=== PATIENT | male | born 1955 | race Caucasian/White ===

== ENCOUNTER 2017-01-06 14:21 | Inpatient (IN) | payer MEDICARE, OTHER ==
[~2017-01-06] VITALS: Ht 182.8 cm; Wt 131.5 kg
--- NOTE | ~2017-01-06 | PR ---
[place], [place] PROGRESS NOTE NAME: PRASANTH STEVENSON UNIT #: [id number] ROOM: 312 DOCTOR: LILY HUERTA MD BIRTHDATE: [birth year] DOS: 01/09/2017 CHIEF COMPLAINT: "I slept better. Thanks Dr. Huerta." SUMMARY OF THE VISIT: The patient was interviewed as he was sitting, eating his breakfast in the dining area. He engaged readily in conversation and did report to me that he did sleep much better. He is still complaining of left hip spasms and states that this pain tends to wear him out as it is persistent and constant throughout the day. Nurses report that he does seem to be trending towards euthymia and is much more approachable and redirectable. MENTAL STATUS: He is alert and oriented with some time gaps. Mood does seem to be strongly trending towards euthymia. Affect is much more appropriate. There are no symptoms of kiera or hypomania. There are no overt auditory or visual hallucinations. No delusions, no paranoia. Short, intermediate, and long-term memory for the most part are intact. PLAN: I will increase the Cymbalta further from 60 to 90 mg at bedtime to further combat depression and anxiety as well as relieving pain. I will order Zostrix high potency cream t.i.d. to his left hip to see if this also impacts positively on pain control. We will engage in individual and armijo milieu activity with the ultimate plan to return to [facility] when psychiatrically stable. LILY HUERTA MD CM:PNTRANS [id number] LILY HUERTA MD 01/09/17 1014 interface
--- NOTE | ~2017-01-06 | DS ---
[place], [place] DISCHARGE SUMMARY NAME[id number] UNIT #: [id number] ROOM: 312 DOCTOR: LILY RILEY MD BIRTHDATE: [birth year] DOS: 01/12/2017 CHIEF COMPLAINT: "I have been higher than a kite; I have bipolar manic depressive disorder. HISTORY OF PRESENT ILLNESS: This is a 61-year-old white male who is well known to me from his stay at [facility] in [place], [place]. The patient was sent here on an involuntary basis by the clinical medical assistant of the facility due to extreme mood lability. He has become both verbally and physically aggressive towards staff and other residents. He became physically combative and actually sought out people in an attempt to attack them. He has not been sleeping well for several weeks and not had any sleep for several days prior to this admission. He has not been attending to his ADLs and has not bathed in weeks. He is admitted now to rule out organic factors, to stabilize on medication, to engage in individual and armijo milieu activity, ultimately with the plan to return back to [facility] when stable. PAST MEDICAL HISTORY: Remarkable for CVA, with residual hemiplegia, gait disturbance, osteoarthritis, benign prostatic hypertrophy, chronic venous stasis dermatitis, GERD, hypertension, obesity and nicotine abuse. SUMMARY OF HOSPITAL COURSE: The patient was admitted to the unit where he was due for his Invega Sustenna injection of 117 mg monthly. However, he seemed to be experiencing breakthrough symptoms prior to receiving the injection, so instead of receiving 117 mg monthly, I increased the dose to 156 mg monthly. He tolerated this well. Additionally, I discontinued his Pristiq due to ineffectiveness and started him on Cymbalta 30 mg at bedtime, then 60 mg at bedtime, then 30 mg in the morning and 60 mg at nighttime in order to combat depression as well as giving him some pain relief. He complained of significant bilateral hip pain as well as some back pain. With the Cymbalta, this did seem to improve it considerably. Rozerem was added at 8 mg at bedtime to further aid sleep. With the combination of the Rozerem, Risperdal 1 mg b.i.d. and the Cymbalta, the patient's sleep normalized. He was actually sleeping through the night for 6-8 hours uninterrupted, did seem to break the manic cycle and broke the psychosis as well. He became much more compliant, much more engaging and much more pleasant. There was no agitation or aggression. There were no threats made. There was no physical aggression towards others. He tolerated that medication combination well without any noticeable side effects. Given the extreme and rapid improvement, he was discharged back to [facility] where I will follow him upon his return there. MENTAL STATUS AT DISCHARGE: The patient was alert and oriented with mild time gaps. Mood was strongly trending towards euthymia. Affect was much more appropriate. He was bright, pleasant and gregarious. He was spontaneous. There was no hypomania or kiera. There were no acute psychotic symptoms. For the most part memory was intact. FINAL DIAGNOSES UPON DISCHARGE: Bipolar type 1, mixed. DISPOSITION: All of his prescriptions have been e scribed to his institutional [place], [place] DISCHARGE SUMMARY NAME: PRASANTH STEVENSON UNIT #: [id number] ROOM: 312 DOCTOR: LILY RILEY MD BIRTHDATE: [birth year] pharmacy. I will follow him once he returns to [facility]. LILY RILEY MD CM:BRAYDON [phone] LILY RILEY MD 01/13/17 0800 interface
--- NOTE | ~2017-01-06 | PR ---
[place], [place] PROGRESS NOTE NAME: PRASANTH STEVENSON UNIT #: [id number] ROOM: 312 DOCTOR: LILY RILEY MD BIRTHDATE: [birth year] DOS: 01/10/2017 CHIEF COMPLAINT: "I slept better, is it time for me to leave, my 72 hours should be up." SUMMARY OF THE VISIT: The patient was interviewed as he finished eating his breakfast. He engaged readily in conversation. He was bright and pleasant. There is no mood lability or agitation. He did mention to me that he thought his 72 hours was up and was hoping he would be able to go back to [place]. When I told him that transportation was probably not going to happen until Friday, he nodded in approval and stated that he likes it here and is willing to continue to work with us. He does seem to be tolerating his current medication regimen well and I see no extrapyramidal symptoms, tardive dyskinesia, somnolence or sedation. MENTAL STATUS: He is alert and oriented with some time gaps. Mood does seem to be strongly trending towards euthymia. Affect is more appropriate. There is no symptom suggestive of kiera or hypomania. There are no overt auditory or visual hallucinations. No delusions, no paranoia. Short term memory has mild gaps, otherwise he is intact. PLAN: I will maintain his current psychotropic regimen, continue to engage in individual and armijo milieu activity with the plan to return to [facility] in [place], [place] when stable. LILY RILEY MD CM:PNTRANS LILY RILEY MD 01/10/17 0846 interface
--- NOTE | ~2017-01-06 | PR ---
[place], [place] PROGRESS NOTE NAME: PRASANTH STEVENSON UNIT #: [id number] ROOM: 312 DOCTOR: LILY RILEY MD BIRTHDATE: [birth year] DOS: 01/11/2017 CHIEF COMPLAINT: "Who put me on this fluid restriction. I will not pee myself anymore, I promise." SUMMARY OF THE VISIT: The patient was interviewed as he had completed his breakfast. He was bright, pleasant and conversant. He offered no complaints other than the fact he was upset about his fluid restriction. He tied it into the fact that he was having accidents earlier; however, I tried to educate him that this was because of some abnormalities in his renal function and he would have to talk to the hospitalist about this. From a psychiatric standpoint, he does seem to be trending significantly towards euthymia and is tolerating the medicines well. He does report that the nighttime medicine especially is helping him sleep soundly throughout the entire night. MENTAL STATUS: He is alert and oriented. Mood does seem to be trending towards euthymia. Affect is more appropriate. There are no symptoms of kiera or hypomania. There are no overt auditory or visual hallucinations. No delusions, no paranoia. Memory for the most part is intact. PLAN: I will check a valproic acid level today at 1500 hours. I will also give him some loose spray to at least give him some oral moistness and see if this helps, engage in individual and armijo milieu activity, returning to [facility] when stable. LILY RILEY MD CM:PNTRANS 8 LILY RILEY MD 01/11/1720 interface
--- NOTE | ~2017-01-06 | WRIGHTHP ---
[place], [place] PATIENT HISTORY AND PHYSICAL EXAM NAME: [facility]EVENSON [id number] #: [id number] ROOM: 312 DOCTOR: LILY RILEY MD BIRTHDATE: [birth year] DOS: 01/07/2017 INITIAL PSYCHIATRIC EVALUATION CHIEF COMPLAINT: "I have been higher than a kite, I have bipolar manic depressive disorder. HISTORY OF PRESENT ILLNESS: This is a 61-year-old white male well known to me from his stay at [facility] in [place], [place]. The patient was sent here on an involuntary basis by the center medical director of the facility due to extreme mood lability. The patient has become both verbally and physically aggressive towards staff and other residents there. He has become physically combative and has actually sought out people to attempt to attack them. He is also not slept well for the last several weeks, not having any sleep for the last several days prior to admission. He is not attending to his ADLs and has not bathed in weeks. He is admitted now to rule out organic factors to attempt to stabilize on medication, to engage in individual and armijo milieu activity, ultimately returning back to [facility] or the least restrictive environment. PAST MEDICAL HISTORY: Remarkable for the CVA, gait disturbance, osteoarthritis, benign prostatic hypertrophy, chronic venous stasis dermatitis, GERD, hypertension, obesity, nicotine abuse. MENTAL STATUS: The patient is alert and oriented to person, place and time. Mood does seem to be rather labile. His speech is rather pressured, but he is interruptible. He does tend to be somewhat circumstantial in his thinking, giving extreme details and at times taking an extremely long time to make his point. He was pleasant, however, upon approach with me and was not agitated or aggressive. I did not see the presence of any paranoia or delusions. There were no acute auditory or visual hallucinations. Memory for the most part was intact. DIAGNOSIS: Bipolar type 1, mixed. PLAN: The patient is due for his Invega Sustenna injection of 117 mg IM today. Given the fact that he is breaking through with increased symptoms prior to the monthly injection, I will increase it to 156 mg IM. The patient reports substantial chronic pain issues and had most recently been on Pristiq as an antidepressant. I will start him on Cymbalta 30 mg at bedtime to combat depression and aid pain control. Screening examination shows him to have a vitamin D level that is barely therapeutic, so I will augment with vitamin D, especially now as we are entering late fall in the beginning of winter. We will engage him in individual and armijo milieu activity with the ultimate plan to return to [facility] or a similar situation when stable. [place], [place] PATIENT HISTORY AND PHYSICAL EXAM NAME: PRASANTH STEVENSON UNIT #: [id number] ROOM: 312 DOCTOR: LILY RILEY MD BIRTHDATE: [birth year] LILY RILEY MD CM:HISPHYS:PATIENT HISTORY AND PHYSICAL EXAMINATION 4 LILY RILEY MD 01/07/17814 interface
--- NOTE | ~2017-01-06 | CON ---
[place], [place] REPORT OF CONSULTATION NAME: PRASANTH STEVENSON UNIT #: [id number] ROOM: 312 DOCTOR: PRASANTH THOMAS DPM BIRTHDATE: [birth year] DOS: 01/07/2017 CHIEF COMPLAINT: The patient presents with chief complaint of a sore on the top of his left foot and elongated and thickened nails of both feet. PAST MEDICAL HISTORY: Remarkable for CVA, gait disturbance, osteoarthritis, benign prostatic hypertrophy, chronic venous stasis dermatitis, GERD, hypertension, obesity, nicotine abuse, bipolar type 1 mixed. PHYSICAL EXAMINATION: LOWER EXTREMITIES: Pedal pulses diminished bilateral; decreased hair growth; nail thickening; pigmentary discoloration; temperature changes; edema; venous insufficiency, bilateral lower extremity with venous stasis dermatitis, anterior aspect, bilateral lower legs, anterior aspect; inter-digital mild maceration with papules; dry scaly skin. There is also a small ulceration, dorsolateral, left foot, approximately 0.6 cm in diameter. No signs of purulent drainage or foul odor. No deep sinus tract. No cellulitis. ASSESSMENT: Onychomycosis; deep venous thrombosis; venous insufficiency, bilateral lower extremity; venous stasis dermatitis, bilateral; resolving tinea pedis, bilateral foot; ulceration, dorsolateral, left foot. PLAN: Evaluation and management. Debrided nails 1 through 5, bilateral foot. Continue Lotrisone ____ also apply Bactroban dressing daily, dorsolateral, left foot ulceration and we will follow the patient's next week if he is still inhouse. Thank you for consultation. PRASANTH THOMAS DPM CM:CONSTR:REPORT OF CONSULTATION 1146 01/07/17 1827 interface
--- NOTE | ~2017-01-06 | PR ---
[place], [place] PROGRESS NOTE NAME: PRASANTH STEVENSON UNIT #: [id number] ROOM: 312 DOCTOR: LILY RILEY MD BIRTHDATE: [birth year] DOS: 01/08/2017 CHIEF COMPLAINT: "I didn't sleep, I am always having trouble sleeping." SUMMARY OF THE VISIT: The patient was interviewed in the dining area. He reported he had a bad night. He woke up at 4:00 and was not able to fall back asleep. This has been a persistent problem both here and at [place]. Staff notes, however, he was very irritable and very volatile yesterday evening, leading into night. He made multiple physical threats to the staff and threatened bodily harm to them. Attempts to calm and redirect were only met with him further escalating. He also mentioned to me this morning that he is bothered by persistent hip pain and that this wears him down and makes him more irritable. MENTAL STATUS: He is alert and oriented with time gaps. Mood does seem to be depressed with anxious overtones and irritability is present. There are no overt auditory or visual hallucinations. No delusions, no paranoia. Memory for the most part is intact. PLAN: I will increase his Cymbalta from 30 to 60 mg at night, hoping that this will combat depression, aid sleep and reduce pain. I will reorder his Invega Sustenna 156 mg for January and every month thereafter and add Rozerem 8 mg at bedtime for sleep, engage in individual and armijo milieu activity with the plan to return back to [facility] when psychiatrically stable. LILY RILEY MD CM:PNTRANS 0940 LILY RILEY MD 01/08/17 0941 interface
[2017-01-06] MEDS ORDERED: AMLODIPINE BESY10 MG PO (14:29)
[2017-01-06] MEDS ORDERED: ASPIRIN81 M1 PO (14:29)
[2017-01-06] MEDS ORDERED: BUMETANIDE1 MG PO (14:30)
[2017-01-06] MEDS ORDERED: DEPAKOTE ER250 MG PO (14:35)
[2017-01-06] MEDS ORDERED: FLOMAX0.4 MG PO (14:44)
[2017-01-06] MEDS ORDERED: HALDOL5 MG/1 ML IJ (14:51)
[2017-01-06] MEDS ORDERED: LISINOPRIL20 MG PO (14:52)
[2017-01-06] MEDS ORDERED: MELATONIN3 MG PO (14:53)
[2017-01-06] MEDS ORDERED: ONE-A-DAY ESSE1 EACH PO (14:54)
[2017-01-06] MEDS ORDERED: PRISTIQ50 MG PO (14:55)
[2017-01-06] MEDS ORDERED: MYRBETRIQ25 M1 PO (14:55)
[2017-01-06] MEDS ORDERED: RISPERIDONE1 M1 PO (14:58)
[2017-01-06] MEDS ORDERED: COREG12.5 M1 PO (14:59)
[2017-01-06] MEDS ORDERED: CLONIDINE0.2 MG PO (15:00)
[2017-01-06] MEDS ORDERED: TYLENOL325 M2 PO (15:01)
[2017-01-06] MEDS ORDERED: KEFLEX500 M1 PO (15:02)
[2017-01-06] MEDS ORDERED: VISTARIL50 MG PO (15:18)
--- NOTE | 2017-01-06 17:54 | NUR ---
PRASANTH STEVENSON a 61 year old M admitted via wheel chair from the ADMITTING as a emergency 72 hr. hold admission. Arrived on unit at . ALLERGIES: . Vital signs are: -- . The client signed the following forms with stated understanding: Authorization For The Release of Medical Information, Clothing List, Consent to Voluntary Admission and Hospitalization, Consent and Release Forms/Receipt of Rights, Acknowledgement of Advance Directive Information, Behavioral Health Consent Form, and Informed Consent of Medications. [facility] A search was conducted and hazardous articles were removed. Client was oriented to the unit. SONAL ALLISON\
--- NOTE | 2017-01-06 18:01 | NUR ---
AWARE OF NEW CONSULT AT THIS TIME.
[2017-01-06 18:03] VITALS: BP 146/83
[2017-01-06 18:29] VITALS: BP 146/83
[2017-01-06 19:54] VITALS: BP 157/86
[2017-01-06 20:20] LABS: BASO % 0.1 % (0.0-1.0); EOS # 0.4 10*3/uL (0.0-0.4); EOS % 5.2 % (1.0-4.0); HEMATOCRIT 42.2 % (42.0-52.0); HEMOGLOBIN 14.1 g/dl (14.0-18.0); LYMPH # 1.8 10*3/uL (1.3-4.4); LYMPH % 23.4 % (27.0-41.0); MEAN CELL VOLUME 97.7 fl (80.0-94.0); MEAN CORPUSCULAR HGB 32.6 pg (27.0-31.0); MEAN CORPUSCULAR HGB CONC 33.4 g/dl (33.0-37.0); MONO # 0.8 10*3/uL (0.1-1.0); MONO % 10.4 % (3.0-9.0); NEUT # 4.6 10*3/uL (2.3-7.9); NEUT % 60.4 % (47.0-73.0); PLATELET COUNT AUTOMATED 218 10*3/uL (130-400); RED BLOOD COUNT 4.32 10*6/uL (4.50-5.90); RED CELL DISTRI WIDTH 13.5 % (0-14.5); WHITE BLOOD COUNT 7.6 10*3/uL (4.8-10.8)
[2017-01-06 20:35] LABS: ALBUMIN 3.4 gm/dl (3.1-4.5); ALKALINE PHOSPHATASE 54 U/L (45-117); BUN 27 mg/dl (7-24); CHLORIDE 91 mmol/L (98-107); CREATININE 1.18 mg/dL (0.70-1.30); SGOT/AST 13 IU/L (3-35); SGPT/ALT 20 U/L (12-78); SODIUM 131 mmol/L (136-145); TOTAL PROTEIN 8.1 gm/dL (6.4-8.2)
[2017-01-06 20:59] LABS: VITAMIN D, 25-HYDROXY 30.7 ng/mL (30-100)
--- NOTE | 2017-01-06 22:31 | NUR ---
HEAD TO TOE SKIN ASSESSMENT COMPLETED DURING SHOWER. PATIENT FOUND TO HAVE COPIOUS AMOUNTS OF DANDRUFF AND DRIED SKIN TO ENTIRE SCALP, MAYER AND FACE. PT ENTIRE ALTHEA AREA NOTED TO HAVE LARGE AMOUNTS OF DRIED FECES. INCONTINENT OF BOWEL AND BLADDER. PT REPORTING [facility] STAY AT [facility] IS DUE TO LACK OF SELF CARE AND ABILITY TO BATHE PROPERLY AT HOME WITH ASSISTANCE OF HOME HEALTH. AREA OF CELLULITIS NOTED TO BLE. RIGHT LEG MEASURING 18X 19X 0.0 LIGHT AMOUNT OF SANGUINEOUS DRAINAGE, REDDENED AND WARMTH NOTED. LEFT LEG MEASURING 19X13X 0.01 REDDENED, WARM TO TOUCH AND LIGHT AMOUNT OF SANGUINEOUS DRAINAGE NOTED. OPEN AREA TO LEFT FOOT MEASURING 0.6X0.5 0.01 LIGHT SANGUINEOUS. ACUTE ON CHRONIC PRESSURE AREA NOTED TO LEFT GLUTEL FOLD WITH THIN PINK FRYABLE SKIN MEASURING 0.6X0.5X 0.01 PINK SCAR TISSUE NOTED TO ALTHEA WOUND AREA. ENTIRE RECTAL AREA EXCORIATED WITH MULTIPLE PIN POINT OPEN AREAS NOTED MEASURING 6X8.5X0.1 DRAINING SANGUINEOUS FLUID NOTED. ALL WOUNDS DOCUMENTED IN PROCESS INTERVENTION, PHOTOGRAPHS TAKEN, CALL PLACED TO NURSING LEAD AUDITOR FOR STAGING OF GLUTEAL WOUND, CALL PLACED TO DR. JERZY MCKEON REQUESTING DRESSING ORDERS. TOE NAILS TO BILATERAL FEET NOTED TO BE LONG, YELLOW AND THICK. ORDERS OBTAINED FOR CONSULT TO PODIATRY. NO OPEN AREAS BUT LARGE AREAS NOTED TO BILATERAL FOOT PADS OF DRY FLAKING SKIN. CONSULT FOR NUTRITION AND WOUNDS PLACED IN PROCESS INTERVENTIONS.
[2017-01-07] MEDS ORDERED: LOTRISONE 0.05%45 GM T (01:13)
[2017-01-07] MEDS ORDERED: DERMASEPTIN OI113 GM T (01:14)
--- NOTE | 2017-01-07 01:47 | NUR ---
[facility] NOTIFIED OF CONSULT FOR EVALUATION OF TOE NAILS AND FOOT WOUND FOR DR. THOMAS. CALLED [phone]
[2017-01-07 04:13] LABS: BILIRUBIN NEGATIVE (NEGATIVE); BLOOD NEGATIVE (NEGATIVE); CLARITY CLEAR (CLEAR); COLOR YELLOW (YELLOW); GLUCOSE NEGATIVE (NEGATIVE); KETONE NEGATIVE (NEGATIVE); LEUKO ESTERASE NEGATIVE (NEGATIVE); NITRITE NEGATIVE (NEGATIVE); UROBILINOGEN 0.2 E.U./dl (0.2-1.0)
[2017-01-07 04:21] LABS: URINE AMPHETAMINES < 1000 (1000ng/ml); URINE BARBITURATES < 200 (200ng/ml); URINE BENZODIAZEPINES < 200 (200ng/ml); URINE CANNABINOIDS (THC) < 50 (50ng/ml); URINE COCAINE < 300 (300ng/ml); URINE METHADONE < 300 (300ng/ml); URINE OPIATES < 300 (300ng/ml)
[2017-01-07 04:28] LABS: URINE PHENCYCLIDINE < 25 (25ng/ml)
[2017-01-07 04:29] LABS: WBC 0-2 wbc/hpf (0-5)
--- NOTE | 2017-01-07 06:49 | NUR ---
PTT COOPERATIVE WITH HS CARE, WOUND ASSESSMENT AND MEDICATION ADMINISTRATION. INCONTINENT OF URINE X2, ABLE TO ALERT STAFF THROUGHOUT THE NIGHT FOR URGE TO URINATE X4 AND ABLE TO USE URINAL WITH ASSISTANCE. PT AWOKE PULLED CALL CALL LIGHT AND RETURNED TO SLEEP BEFORE NURSING STAFF COULD RESPOND. WHEN AWOKEN PT STATED I'M ANXIOUS I NEED A VISTARIL AND FELL BACK ASLEEP MID SENTENCE WITH NURSING STAFF. PT BECAME AGITATED WITH STAFF WHILE PROVIDING AM CARE, PT ATTEMPTING TO STAND WITH LEGS WRAPPED IN BLANKETS, USING PROFANE LANGUAGE WITH STAFF. PT REDIRECTED AND EDUCATED THAT HE WOULD BE UNABLE TO STAND WITH OUT FALLING AND THAT WE ONLY CARE ABOUT HIS SAFETY. PT MORE AGREABLE BUT CONTINUES TO BE FIXATED ON ROUTINE OF LONG-TERM STAFF AND STATING, "I'M BEING SENT TO A PSYCH [facility] BECAUSE THOSE MOTHER FUCKERS WOULDNT LET ME DO WHAT I WANT TO". PT INFORMED OF HIS RIGHTS AND GIVEN CHOICES, EDUCATED ON MEAL TIMES AND REMINDED OF UNIT RULES. PT MORE AGREABLE WITH AM CARE CONVERSING WITH THIS NURSE FREELY. TANGENTIAL AND PRESSURED SPEECH AT TIMES THAT IS GARBLED DUE TO PAST CVA. PT SLEPT 6 HOURS WITH FEW INTURRUPTIONS. UP TO CHAIR IN DINING ROOM AWAITING BREAKFAST.
[2017-01-07 07:39] LABS: CHOLESTEROL 186 mg/dL (<200); HDL CHOLESTEROL 34 mg/dl (40-60); LDL CHOLESTEROL 114 mg/dL (9-159); TRIGLYCERIDES 190 mg/dl (<150); VLDL CHOLESTEROL 38 mg/dL (6-40)
[2017-01-07 08:14] VITALS: BP 136/71
--- NOTE | 2017-01-07 10:56 | NUR ---
Goals, relaxation and leisure group Patient present and actively participated in group. Patient able to state appropriate daily goal. Patient requested painting due to it being something they enjoyed and a way to relax and decrease stress. Patient engaged in appropriate converstation with staff and peers in group.
--- NOTE | 2017-01-07 11:11 | NUR ---
PHYSICAL THERAPY PAtient evaluated on 3, full evaluation to follow. Continue with PT as per per plan of care with fall, left LE spasms, min to mod (A) and unit three precautions. Return to LTC as prior with PT prn to return to PLOF. PAtient is high compleixty via chart review, tests and evaluation: 20145. Thank you for this referral. Dionne Thapa,PT
--- NOTE | 2017-01-07 11:14 | NUR ---
Occupational Therapy evaluation completed this date on 3 with full eval to follow. PRecautions include fall risk, personal alarm, w/c use >ww use w/ assist, limited both shoulder use, right facial droop, dysarthria, moderate complexity, left hemiparesis. Recommend OT per POC and return to LTC at [facility]. Thank you for this referral. Tri Dotson OTR/L
--- NOTE | 2017-01-07 11:31 | NUR ---
DR. STANLEY AND DR. LOVE ON UNIT TO SEE PT AT THIS TIME. MADE AWARE PT REQUESTING PNEUMONIA VACCINE. DR. THOMAS ALSO HERE TO SEE PT AT THIS TIME. STATES WILL ORDER BACTROBAN FOR OPEN AREA TO LEFT FOOT. STATES OK TO CONTINUE LOTRISONE CREAM TO BLE.
--- NOTE | 2017-01-07 13:40 | NUR ---
PT IS ALERT AND ORIENTED TO PERSON, PLACE, TIME AND SITUATION. MEMORY APPEARS TO BE INTACT. RESPIRATIONS EASY ON ROOM AIR. MOOD IS STABLE, ANGRY/IRRITABLE AT TIMES, AFFECT IS APPROPRIATE. SPEECH IS COHERENT, SLURRED AT TIMES BUT PT IS ABLE TO COMMUNICATE EFFECTIVELY AND MAKE NEEDS KNOWN. PT DENIES SI/HI. PT DENIES HALLUCINATIONS, NO RESPONSE TO INTERNAL STIMULI NOTED. NO PARANOIA/DELUSIONS NOTED. MEDICATION COMPLIANT WITHOUT DIFFICULTY. INVEGA SUSTENNA 156MG IM GIVEN TO LEFT DELTOID ORDERED BY DR. RILEY. PT VERBALIZED UNDERSTANDING OF USE FOR MEDICATION AND ALSO JOKED WITH STAFF, "SO THIS MEDICINE WILL MAKE ME A MELLOW FELLOW, RIGHT?" PT HAS BEEN CALM AND COOPERATIVE, INTERACTIVE WITH STAFF AND PEERS. PT USES WHEELCHAIR FOR MOBILITY AND SAFETY, FALLING STAR PROGRAM MAINTAINED. PT IS ABLE TO TRANSFER WITH MIN/MOD ASSIST OF 1 STAFF. CONTINENT OF BOWEL AND BLADDER THIS SHIFT. FEEDS SELF WITH SET UP ASSIST. DISPLAYS GOOD APPETITE AND ADEQUATE FLUID INTAKE. NO DISTRESS NOTED. Q15 MIN SAFETY CHECKS MAINTAINED, REFER TO [facility] FLOWSHEET FOR SPECIFIC MONITORING.
--- NOTE | 2017-01-07 14:08 | NUR ---
SW completed psychosocial assessment and faxed update info. so that SW at facility can update the "change in condition" form. SW spoke with pt. 1:1 and pt. would like to be able to be in his own apt. again. pt. admits to "trashing" his apt. thru the [facility] [employer] [facility] because he was "manic". pt states "This time at the [facility] [place], I "went off" because I only get $50 allowance a month for cigarettes and beer and I am now broke, I need more cigaraettes and beer". SW asked if he could ask his brother for more money a month to spend and he said "my brother doesn't like me smoking and drinking so much, so no he won't send me extra money". pt. was more irritable at this time when discussing his money restrictions at [facility] and that "I am a grown man, I need more money a month". SW did explore the possibility of AL with pt. but due to him "being total care". he may not qualify but asked the SW to explore AL waiver bed thru [facility]. SW let him know she would explore that option for pt.
--- NOTE | 2017-01-07 15:11 | NUR ---
Stress and Relaxation Patient was in attendence for group as well as participated. Patient wants to dominate group,talking over or interupting other patients or myself during group. Patient was inappropriate during group stating there is a female employee where he lives that "I hate and I would love to get around the throat." This AC attempted to stop patient from continuing on with his story but he continued to talk louder. Explained to patient about his unappropriate statements and if he continued he would be asked to leave group. Patient apologized and there were no more issues during group
--- NOTE | 2017-01-07 15:44 | NUR ---
PRASANTH STEVENSON [id number] Please refer to the physician's history and physical for past medical history, comorbid conditions, and allergies. Diagnosis: BRIEF PSYCHOTIC D/O Ronaldo Score: 17,AT RISK WOUND DESCRIPTIONS: Location of the wound: left lateral foot Type of wound: Thickness: Partial Size: 0.2cm x 0.3cm x 0.1cm Tunneling: none Undermining: none Sinus Tract: none Presence of Exudate: Serous Amount: Light Color: [place] Odor: None Periwound Skin Appearance: Normal Wound edges: approximated Pain (associated with wound): patient denied at time of assessment How does patient state this happened? patient unsure how this happened Surface the patient is resting on: Proform SKIN PREVENTION RECOMMENDATION: 1. Pressure redistribution support surface as appropriate 2. Elevate heels 3. Remove boots/TEDS every shift and reapply 4. Head of bed 30 degrees as tolerated 5. Assess nutrition and hydration 6. Manage moisture 7. Avoid the use of containment devices while in bed 8. Use absorptive products on surfaces limit layers of linens on bed 9. Turn and reposition every 1-2 hours in bed and every 1 hour in chair as tolerated 10. Weight shifts every 15 minutes while up in chair 11. Offloading with pillows or device to keep heels elevated off bed 12. Monitor skin at least every shift 13. Inspect under medical devices twice a day WOUND TREATMENT RECOMMENDATIONS: Continue with Podiatry dressing orders
--- NOTE | 2017-01-07 16:54 | NUR ---
PNEUMOVAX 23 GIVEN IM TO RIGHT DELTOID THIS DATE. VACCINE INFORMATION SHEET PROVIDED TO PT. PT TOLERATED WELL.
[2017-01-07 20:00] VITALS: BP 152/84
--- NOTE | 2017-01-07 21:40 | NUR ---
INTERACTIVE WITH STAFF AFTER TALKING WITH FRIEND ON PHONE. DENIES ANY OF THE ACCUASATIONS MADE BY [facility]. STATES THEY ALL THINK "I'M OFF MY ROCKER" STATES THEY HAVE TRIED TO HAVE HIM COMMITTED TO A PSYCH UNIT FOR AWHILE. STATES HE WILL NOT SIGN ANYTHING THAT WILL KEEP HIM HERE. DISCUSSED REASONS FOR HIM TO STAY LONG DR RILEY FEELS NECESSARY TO GET MEDICATIONS ADJUSTED AND MAYBE LEARN A FEW NEW COPING SKILLS. DENIES NEED FOR COPING SKILLS AND SAYS HE THINKS HE WILL BE READY TO GO BY FRIDAY. ENCOURAGED HIM TO VOICE HIS THOUGHTS TO DR RILEY. PREPARING FOR BED CLIENT GOT EASILY AGGITATED WHEN THINGS DIDN'T GO QUICKLY HE THOUGHT THEY SHOULD BUT WAS EASILY REDIRECTED WITH EXPLAINATIONS TO WHY YELLING WAS NOT ACCEPTABLE. REFUSED ALL PM CARE INCLUDING ORAL CARE. DID ALLOW US TO CHANGE HIS CLOTHING SO THEY COULD BE WASHED. SWEAT SHIRT HAS REMENANTS OF FOOD AND LARGE QUANTITY OF DROOL. FACIAL DROOP NOTED RIGHT SIDE WITH EXCESSIVE SALIVA WHICH CLIENT CLAIMS IS NORMAL. HOB UP 30 DEGREES. WILL MONITOR
--- NOTE | 2017-01-08 00:43 | NUR ---
VOIDED WITHOUT DIFFICULTY. REPOSITIONED AND BACK TO SLEEP
--- NOTE | 2017-01-08 02:00 | NUR ---
24 HR chart check completed.
--- NOTE | 2017-01-08 06:00 | NUR ---
VINICIUS SET ALARM OFF AND AND SAID HE HAD TO VOID. WAS IN MIDDLE OF PROCESS WITH DOCTOR AND TOLD HIM I WOULD BE BACK IN 5 MINUTES. CLIENT STARTED YELLING AT ME CALLING ME A MOTHER F WHOR HE WAS GOING TO PUNCH IN THE FACE. ATTEMPTS TO REDIRECT UNSUCCESSFUL. UPON RETURNING CLIENT HAD BEEN INCONTINENT OF URINE IN BED. HE CONTINUED TO SCREAM VULGARITIES AND PHYSICAL VIOLENCE AT BOTH MYSELF AND MYRA RN. GOT HIM INTO SHOWER CHAIR WHILE HE IS SCREAMING HE DOESN'T NEED A SHOWER THIS EARLY IN THE MORNING. TRIED TO EXPLAIN HE IS COVERED IN URINE AND NEEDED TO BE CLEANED UP TO NO AVAIL. WE FINALLY PUT HIM IN SHOWER AND HE ALLOWED US TO SHOWER HIM BUT CONTINUED WITH THREATS OF LAWSUITS IF HE FALLS OR GETS HURT. REFUSED ORAL CARE. AFTER SHOWER DRIED CLIENT AND DRESSED HIM AND HE THEN SAID TO ME "WE'RE ENOC RIGHT" AND FIST BUMPED ME. I THEN EXPLAINED THE VULGARITY AND THREATS OF VIOLENCE WAS NOT ACCEPTABLE BEHAVIOR AND HE NEEDS TO WORK ON COPING TECHNIQUES. HE THEN REPLIED "YOU CAN'T UNDO WHAT HAS ALREADY BEEN DONE" AGAIN REDIRECTED THAT THAT MAYBE TRUE IT IS STILL UNACCEPTABLE AND HE NEEDS TO LEARN OTHER WAYS TO EXPRESS HIS ANGER.
[2017-01-08 07:50] VITALS: BP 140/75
--- NOTE | 2017-01-08 08:11 | NUR ---
PHYSICAL THERAPY David was seen this AM 1:1 for his therapy session, Pt up in the day room in his wheelchair. Transfer sit/stand and up on wheeled walker MOD LOCK ASSEMBLER X 1, with bilateral UE, hands shaking, standing balance MIN A X 1. Gait 60' X 1, sitting rest then 95' X 1, MOD LOCK ASSEMBLER X 1, with verbal cueing for gait safety, balance and his turns. End with act Ex to bilateral LE marching, and ankle pumps X 15 reps each. Pt having bilateral knee pain and didnot want to do the LAQ's. Pt back up in ther day room. FIONA HUA MANAGER INVENTORY.
[2017-01-08 08:24] LABS: CHLORIDE 93 mmol/L (98-107); POTASSIUM 4.3 mmol/L (3.5-5.1); SODIUM 129 mmol/L (136-145)
[2017-01-08 08:34] LABS: BUN 17 mg/dl (7-24)
--- NOTE | 2017-01-08 09:15 | NUR ---
BEBETO SARABIA CNP OF HOSPITALIST GROUP MADE AWARE OF ABNORMAL LABS AND PT'S DX OF SIADH.
--- NOTE | 2017-01-08 09:19 | NUR ---
LEO discussed with Nurse Fields and Dr. acuña pt's "pink slip" that will Friday. Dr. acuña states "He will sign in, I will discuss with pt. and nurse together". Dr. acuña left before discussing "pink slip" with pt. so this will be passed to Nurse Sears for tomorrow, who will be the Charge Nurse to assure that pt. has discussion and signs in before the "pink slip" expiration on Friday at 11:30am.
--- NOTE | 2017-01-08 10:15 | NUR ---
BEBETO SARABIA CNP OF HOSPITALIST GROUP HERE TO SEE PT. ASSESSED PT. NEW ORDERS RECIEVED FOR 1000ML FLUID RESTRICTION PER 24 HOURS AND CBC/CMP FOR AM.
--- NOTE | 2017-01-08 11:35 | NUR ---
Goals,Exercise and [place] Trivia Patient did attend group with limited participation. Patient joined during the first part of group but then fell asleep. This AC work patient and encouraged him to participate but patient fell back to sleep. During the time patient was awake and participating he showed no signs of aggressive behavior
--- NOTE | 2017-01-08 12:29 | NUR ---
PT IS ALERT AND ORIENTED TO PERSON, PLACE, TIME AND SITUATION. MEMORY APPEARS INTACT. RESPIRATIONS EASY ON ROOM AIR. MOOD IS ANGRY/IRRITABLE AT TIMES. AFFECT IS FLAT. SPEECH IS LOUD, GARBLED AT TIMES BUT PT IS ABLE TO MAKE NEEDS KNOWN WITHOUT DIFFICULTY. PT DENIES SI/HI. PT DENIES HALLUCINATIONS, NO RESPONSE TO INTERNAL STIMULI NOTED. NO PARANOIA/DELUSIONS NOTED. MED COMPLIANT WITHOUT DIFFICULTY. PT CAN BE DEMANDING AT TIMES, HAS BEEN ABLE TO BE REDIRECTED WITH MINIMAL DIFFICULTY TODAY. NO ANGRY OUTBURSTS OF THIS TIME THIS SHIFT. PT USES WHEELCHAIR FOR MOBILITY, SAFETY. FALLING STAR PROGRAM MAINTAINED. CONTINENT OF BOWEL AND BLADDER. FEEDS SELF, GOOD APPETITE NOTED. 1000ML FLUID RESTRICTION INITIATED. STAFF MADE AWARE OF FLUID RESTRICTION. NO DISTRESS NOTED. Q15 MIN MONITORING CONTINUES. REFER TO [facility] FLOWSHEET FOR SPECIFIC MONITORING.
--- NOTE | 2017-01-08 14:49 | NUR ---
Thanksgiving Fun Facts and a movie Patient was in attendence for group as well as participated. Patient showed no signs of aggression during group. Patient was joking appropriatly with myself as well as the other patient.
--- NOTE | 2017-01-08 16:23 | NUR ---
PT CAME TO THIS NURSE, REQUESTED TO TALK ABOUT VOLUNTARY ADMISSION. STATES HE WOULD LIKE TO SIGN HIMSELF IN. VOLUNTARY ADMISSION FORM REVIEWED WITH PT. PT VERBALIZED UNDERSTANDING AND SIGNED IN FOR VOLUNTARY ADMISSION. DR. RILEY AND SW MADE AWARE.
--- NOTE | 2017-01-08 18:59 | NUR ---
SHIFT CHART CHECK COMPLETED.
[2017-01-08 20:04] VITALS: BP 162/87
--- NOTE | 2017-01-08 20:09 | NUR ---
TYLENOL GIVEN FOR C/O ALL OVER ARTHRITIC PAIN. REVIEWED FLUID RESTRICTION CLIENT IS UNDER. CLIENT ARGUMENTATIVE THEN TRIED TO NEGOTIATE FLUID ISSUES. HIS PATTERNS SEEM TO BE ARGUMENTATIVE THEN APOLOGETIC. STATES HE WORKED ON HIS ANGER ISSUES TODAY. WE DISCUSSED NEW COPING TECHNIQUES THAT HE WASN'T PARTICULARILY INTERESTED IN. PROVIDED CD AT HIS REQUEST IN A QUIET ROOM
--- NOTE | 2017-01-08 22:12 | NUR ---
USES WALKER WELL TO AMBULATE. ASSISTED CLIENT TO BATHROOM TO VOID. CHANGED FOR SLEEP. REFUSED ORAL CARE
--- NOTE | 2017-01-08 22:48 | NUR ---
ASSITED TO BED. STATES TYLENOL MODERATLY EFFECTIVE. CONTINUES TO GET DEMANDING WHEN NEEDS NOT MET IMMEDIATLY. DISCUSSED WORKING ON PATIENTS [place] AND HE AGREED
--- NOTE | 2017-01-09 00:31 | NUR ---
24 HR chart check completed.
[2017-01-09 04:22] LABS: BASO % 0.1 % (0.0-1.0); EOS # 0.5 10*3/uL (0.0-0.4); EOS % 5.2 % (1.0-4.0); HEMATOCRIT 36.5 % (42.0-52.0); HEMOGLOBIN 12.3 g/dl (14.0-18.0); LYMPH # 1.6 10*3/uL (1.3-4.4); LYMPH % 18.4 % (27.0-41.0); MEAN CELL VOLUME 97.6 fl (80.0-94.0); MEAN CORPUSCULAR HGB 32.9 pg (27.0-31.0); MEAN CORPUSCULAR HGB CONC 33.7 g/dl (33.0-37.0); MONO # 1.4 10*3/uL (0.1-1.0); MONO % 15.5 % (3.0-9.0); NEUT # 5.3 10*3/uL (2.3-7.9); NEUT % 60.3 % (47.0-73.0); PLATELET COUNT AUTOMATED 167 10*3/uL (130-400); RED BLOOD COUNT 3.74 10*6/uL (4.50-5.90); RED CELL DISTRI WIDTH 13.3 % (0-14.5); WHITE BLOOD COUNT 8.8 10*3/uL (4.8-10.8)
[2017-01-09 04:39] LABS: ALKALINE PHOSPHATASE 42 U/L (45-117); BUN 20 mg/dl (7-24); CHLORIDE 91 mmol/L (98-107); CREATININE 1.05 mg/dL (0.70-1.30); POTASSIUM 4.6 mmol/L (3.5-5.1); SGOT/AST 14 IU/L (3-35); SGPT/ALT 16 U/L (12-78); SODIUM 128 mmol/L (136-145); TOTAL PROTEIN 6.9 gm/dL (6.4-8.2)
--- NOTE | 2017-01-09 05:40 | NUR ---
CONTINENT OF URINE ALL NIGHT. VOIDED TWICE. 325ML IN URINAL THEN ONCE IN TOILET. STRAW IN COLOR. REFUSED AM CARE. STATES ONLY TAKES A SHOWER TWICE A WEEK. REFUSED ORAL CARE. DRESSED AND BROUGHT TO GROUP ROOM
[2017-01-09 08:16] VITALS: BP 126/57
--- NOTE | 2017-01-09 11:09 | NUR ---
Goals,Exercise and Thanksgiving puzzles Patient was in attendence for group with very limited participation. Patient participated for goals but then stated something inappropriate. Patient was asked not to speak that way,patient was somewhat arguementative but complied. Patient then went to sleep in his chair.
--- NOTE | 2017-01-09 11:25 | NUR ---
PATIENT IS ALERT AND ORIENT TO PERSON, PLACE, TIME AND SITUATION. ABLE TO VOICE MUSIC. MOOD IS IRRITABLE AT TIMES. ABLE TO REDIRECT WITH EFFECTIVENESS. THOUGHT PROCESS IS ORGANIZED AND GOAL DIRECTED. DENIES ANY HALLUCINATIONS, DELUSIONS, HI/SI OR PAIN. CALM DEMEANOR. 1 PERSON ASSIST WITH ACTIVITIES OF DAILY LIVING. CONTINENT OF BOWEL AND BLADDER. COOPERATIVE WITH SKIN TREATMENTS. SELF PROPELS IN W/C AND SET FOR MEALS. CONTINUES ON FLUID RESTRICTIONS AND REMINDER FREQUENTLY OF THESE RESTRITIONS. Q 15 MINUTE SAFETY CHECKS MAINTAINED. NO AGGRESSION NOTED, CONTINUE TO MONITOR AND REDIRECT NEEDED.
--- NOTE | 2017-01-09 13:27 | NUR ---
NO FURTHER COMPLAINTS OF PAIN VOICED, UP IN CHAIR, CALM DEMEANOR WATCHING TV. PRN TYLENOL EFFECTIVE.
--- NOTE | 2017-01-09 14:28 | NUR ---
PATIENT COMPLAINED OF GENERALIZED BODY ACHES REQUESTING TYLENOL. PRN TYLENOL 650MG PO GIVEN AT THIS TIME.
[2017-01-09 20:02] VITALS: BP 132/76
--- NOTE | 2017-01-10 06:54 | NUR ---
PT SLEPT THROUGHOUT NIGHT WITH FEW INTURRUPTIONS TO URINATE. PT COOPERATIVE WITH ALL ASPECTS OF CARE, MED COMPLIANT WITH OUT DIFFICULTY, RECEPTIVE TO MED EDUCATION REGARDING NEW MED CYMBALTA. IMPROVED MOOD LABILITY THAN ON PREVIOUS SHIFTS, NO EPISODES OF AGRESSION WITH THIS NURSE. CONTINUE POC, CONTINUE TO ENCOURAGE PARTICIPATION IN GROUP.
[2017-01-10 08:00] VITALS: BP 129/84
--- NOTE | 2017-01-10 09:12 | NUR ---
PATIENT SEEN 1:1 OT THIS DATE. PATIENT SEATED IN W/C IN DAY ROOM THIS DATE. PATIENT IDENTIFIED BY NAME AND DATE OF . PATIENT COMPLETED RUE AROM SHOULDER FLEX/EXT, AND HORIZONTAL ABD/ADD TO APPROX O-90 DEGREES X 10 REPS. COMPLETED LUE AAROM SHOULDER FLEXION/EXT TO APPROX 0-90 DEGREES THIS DATE. PATIENT COMPLETED BUE AROM ELBOW FLEX/EXT, FOREARM SUPINATION/PRONATION, AND HAND FLEX/EXT X 10 REPS. COMPLETED W/C TRICEP PUSH UPS SEATED X 10 REPS SBA. PATIENT SEATED IN DAY ROOM WITH CHAIR ALARM ATTACHED AND NO FURTHER NEEDS. NEMO BRUMFIELD/Mino
--- NOTE | 2017-01-10 09:15 | NUR ---
PHYSICAL THERAPY David seen this 1:1 for his therapy session and improving. Wheeled Pt out into the desir. Transfer sit/stand MOD A X 1, standing balance with wheeled walker MIN A X 1. Followed by gait 100' X 1, then sitting rest a little SOB, followed by 70' X 1, W/W and MIN/MOD A X 1, verbal cueing for gait, walker turn safety, no LOB and back up in his wheelchair. After short rest act Ex to bilateral LE of marching, LAQ's and ankle pumps with no C/O knee pain X 25 reps each. FIONA HUA ACTION INSTALLER.
--- NOTE | 2017-01-10 10:48 | NUR ---
Goals, remanissing and cornhole group Patient present and participated in parts of group. Patient able to state appropriate goal. Patient disccused childhood memories and what made him happy around the holidays. Patient plesant throughout group however fell asleep during remanissing.
--- NOTE | 2017-01-10 18:19 | NUR ---
David is compliant with prescribed medications. He is noted to be interactive and responds appropriately to questions asked by staff. Thoughts are organized. Alert and oriented to all spheres. No inappropriate behavior has been noted and no agitation has been observed throughout the day. Dr. Huerta in to see him with no further orders received. David requires maximal assistance with hygiene measures @ times. Denies experiencing any sensory disturbances and no overt s/s are noted. Energy level low and he has spent his time viewing football games in the dining room. Reports that he is frustrated with the fluid restriction. Milly Martin in to see him and attempted to explain the reason for the fluid restriction, however, he was not receptive. Refer to [facility] flowsheet for specific monitoring.
[2017-01-10 20:00] VITALS: BP 144/88
--- NOTE | 2017-01-11 04:30 | NUR ---
24 HOUR CHART CHECK COMPLETED.
--- NOTE | 2017-01-11 05:24 | NUR ---
PATIENT IS ALERT AND ORIENTED X3 THIS SHIFT WITH NOTED IRRITABILITY AND AGITATION AT TIMES. DURING 1:1 PATIENT STATED "IM FINE IM JUST WAITING ON MY MEDICATIONS, WHEN ARE THEY COMING". DENIES FEELINGS OF DEPRESSION, SI, HI, AND HALLUCINATIONS. NO NOTED RESPONDING TO INTERNAL STIMULI. MEDICATION COMPLIANT WITHOUT DIFFICULTY AFTER REVIEW OF MEDICINES. NO ANGRY OUTBURSTS NOTED SO FAR THIS SHIFT. SLEPT APPROX 7 HOURS THROUGHOUT THE NIGHT WITH X1 BRIEF AWAKENING TO USE THE RESTROOM WITH ASSISTANCE OF STAFF. 1000ML FLUID RESTRICTION CONTINUED AND MAINTAINED. NO PHYSICAL COMPLAINTS VOICED. PATIENT CURRENTLY IN BED WITH EYES CLOSED. RESPIRATIONS EASY AND REGULAR. NO SIGNS OR SYMPTOMS OF DISTRESS NOTED. REFER TO [facility] FLOWSHEET FOR SPECIFIC MONITORING.
[2017-01-11 07:57] VITALS: BP 147/60
--- NOTE | 2017-01-11 10:30 | NUR ---
DR STANLEY ON UNIT TO SEE PATIENT.
--- NOTE | 2017-01-11 11:46 | NUR ---
PATIENT IS ALERT AND ORIENT TO PERSON, PLACE, TIME AND SITUATION; ABLE TO VOICE NEEDS. MOOD IS STABLE. DENIES ANY HALLUCINATIONS, DELSIONS, HI/SI OR PAIN. 1 PERSON ASSIST WITH ACTIVITIES OF DAILYL LIVING. UP IN WHEELCHAIR, ABLE TO SHIFT WEIGHT INDEPENDANTLY. CONTINENT OF BOWEL AND BLADDER. COMPLAINT WITH MEDICATIONS. APPETITE IS GOOD, CONTINUING TO MONITOR FLUID INTAKES PER ORDER. Q 15 MINUTE SAFETY CHECKS. CONTINUE TO MONITOR FOR AGGRESSION AND REDIRECT NEEDED.
--- NOTE | 2017-01-11 14:42 | NUR ---
PATIENT COMPLAINED OF GENERALIZED BODY ACHES WANTING TYLENOL, PRN TYLENOL 650M PO GIVEN AT THIS TIME.
--- NOTE | 2017-01-11 15:41 | NUR ---
PRN TYLENOL EFFECTIVE, NO FURTHER COMPLAINTS NOTED.
--- NOTE | 2017-01-11 16:05 | NUR ---
PATIENT REFUSED LABS X 2 ATTEMPT, 1:[address] GEE NOTIFIED.
--- NOTE | 2017-01-11 16:06 | NUR ---
Shift chart check completed.
[2017-01-11 20:06] VITALS: BP 145/83
--- NOTE | 2017-01-12 03:25 | NUR ---
24 HOUR CHART CHECK COMPLETED.
--- NOTE | 2017-01-12 05:10 | NUR ---
PATIENT IS ALERT AND ORIENTED X4. MEMORY APPEARS INTACT. MOOD IRRITABLE AT TIMES. SPEECH IS LOUD, GARBLED AT TIMES BUT IS ABLE TO MAKE NEEDS KNOWN WITHOUT DIFFICULTY. DURING 1:1 PATIENT WAS PLEASANT UPON APPORACH AND STATED "YOU KNOW I THINK I HAVE GOTTEN ALOT BETTER, DONT YOU THINK SO". DENIES FEELINGS OF DEPRESSION, SI, HI, AND HALLUCINATIONS. NO NOTED RESPONDING TO INTERNAL STIMULI. MEDICATION COMPLIANT WITHOUT DIFFICULTY AFTER REVIEW OF MEDICINES. NO ANGRY OUTBURSTS NOTED SO FAR THIS SHIFT. SLEPT APPROX 7 HOURS THROUGHOUT THE NIGHT WITH X1 BRIEF AWAKENING TO USE THE RESTROOM WITH ASSISTANCE OF STAFF. 1000ML FLUID RESTRICTION CONTINUED AND MAINTAINED. NO PHYSICAL COMPLAINTS VOICED. PATIENT CURRENTLY IN BED WITH EYES CLOSED. RESPIRATIONS EASY AND REGULAR. NO SIGNS OR SYMPTOMS OF DISTRESS NOTED. REFER TO [facility] FLOWSHEET FOR SPECIFIC MONITORING.
[2017-01-12 08:30] VITALS: BP 143/65
--- NOTE | 2017-01-12 19:30 | NUR ---
ASSISTED TO BATHROOM TO VOID AND HAVE SMALL BM. DOES WELL WITH WALKER. STATES HE IS READY TO GO HOME, FEELS HE HAS LEARNED HOW TO CONTROL HIS TEMPER WHILE BEING HERE. ENCOURAGED TO STAY A COUPLE MORE DAYS BUT WANTS TO GO HOME
[2017-01-12 20:00] VITALS: BP 142/88
--- NOTE | 2017-01-12 20:40 | NUR ---
WATCHING TV. OFFERED PM CARE INCLUDING SHOWER BUT HE REFUSED. STATES HE IS GOING BACK TO INTERMEDIATE TOMORROW AND FRIDAY NIGHT IS SHOWER NIGHT. UNABLE TO CHANGE CLIENTS MIND.
--- NOTE | 2017-01-12 22:33 | NUR ---
ASSISTED TO BATHROM AND PREP FOR BED. SMALL MUSHY STOOL. AGAIN REFUSED ORAL CARE AND SHOWER. WALKS FAIR WITH WALKER. PLACED IN BED IN POSITION OF COMFORT
--- NOTE | 2017-01-12 23:58 | NUR ---
up to void small quantity
--- NOTE | 2017-01-13 00:55 | NUR ---
24 HR chart check completed.
--- NOTE | 2017-01-13 01:31 | NUR ---
UP TO VOID. STATES HE CAN'T SLEEP BECAUSE HE IS NERVOUS AND EXCITED ABOUT GOING HOME. REMINDED HIM THAT DR RILEY HASN'T ORDERED HIS DISCHARGE YET AND TO TRY TO GET SOME SLEEP SO HE WILL BE PREPARED EITHER WAY TOMORROW. VERBALIZED UNDERSTANDING
--- NOTE | 2017-01-13 03:12 | NUR ---
UP TO VOID. TYLENOL GIVEN FOR C/O SLIGHT HEADACHE
--- NOTE | 2017-01-13 05:25 | NUR ---
APPEARS TYLENOL EFFECTIVE. EYES CLOSED RESP EASY NON LABORED
--- NOTE | 2017-01-13 06:43 | NUR ---
BECAME AGGITATED AND THREW TOOTHBRUSH INTO SINK. STATES I CAN'T DO IT AND SAT BACK DOWN ON TOILET. UNABLE TO REDIRECT. EMOTIONAL SUPPORT PROVIDED. DRESSED AND PLACED IN WHEELCHAIR FOR THE DAY
--- NOTE | 2017-01-13 06:45 | NUR ---
SLEPT FAIR. UP 4 TIMES TO VOID
[2017-01-13] MEDS ORDERED: INVEGA SUSTENN156 MG IM (07:41)
[2017-01-13] MEDS ORDERED: ROZEREM8 MG PO (07:41)
[2017-01-13] MEDS ORDERED: BIOTENE MOIST44.3 ML PO (07:41)
[2017-01-13] MEDS ORDERED: DIVALPROEX SOD500 M1 PO (07:41)
[2017-01-13] MEDS ORDERED: ZOSTRIX 0.025%,60 GM T (07:41)
[2017-01-13] MEDS ORDERED: DULOXETINE HCL60 MG PO (07:41)
[2017-01-13] MEDS ORDERED: DULOXETINE HCL30 MG PO (07:41)
[2017-01-13] MEDS ORDERED: RISPERIDONE1 MG PO (07:41)
[2017-01-13 07:55] VITALS: BP 123/63
--- NOTE | 2017-01-13 08:27 | NUR ---
NOTIFIED OF PT DIACHRGE SET FOR TODAY AND MEDICAL MEDS NEEDING COMPLETED.
--- NOTE | 2017-01-13 09:20 | NUR ---
REFUSED NICOTINE PATCH- REFUSED DISCHARGE WOUND CARE PHOTOS- STATES JUST WANTS TO GET THE HELL OUT OF HERE SO HE CAN DRINK COFFEE AND SMOKE
--- NOTE | 2017-01-13 09:38 | NUR ---
pt to be d/c'ed today back to [facility] at 1pm via [facility]. pt. states "I have to go back there?" [facility] service coordinator Frannie who informed the [place] staff.
--- NOTE | 2017-01-13 09:44 | NUR ---
PHYSICAL THERAPY Mr Roland seen this AM 1:1 for his therapy session and sleeping sound his first therapy visit. Stopped back 45 min later after David's breakfast and he was ready to gait. Wheeled out into her desir, transfer sit/stand with MODE MOTORIZED SQUAD COMMANDING OFFICER X 1 standing balance with wheeled walker MIN A X 1. Then gait 90' X 1, MOD MOTORIZED SQUAD COMMANDING OFFICER X 1, with W/W and asking to sit to rest at this time, no LOB. Followed by another gait 90' X 1, cueing for gait safety, balance and once up David does well. End with act Ex to bilateral LE of marching, LAQ's, and ankle pumps X 25 reps each with cueing for each Ex. Pt taken back to the day room. FIONA HUA COMPUTER OPERATIONS SPECIALIST.
--- NOTE | 2017-01-13 10:09 | NUR ---
PATIENT SEEN 1:1 OT THIS DATE 15 MINUTES.PATIENT IDENTIFIED BY NAME AND DATE OF [facility]. PATIENT REPORTS FEELING TIRED AND C/O SORE RIGHT SHOULDER. PATIENT COMPLETED ACTIVITY TO TOLERANCE THIS DATE. PATIENT COMPLETED BUE AROM SROM TECHNIQUE INCLUDED ELBOW FLEX/EXT AND HORIZONTAL ABD/ADD X 15 REPS.COMPLETED AROM WRIST FLEX/EXT, HAND FLEX/EXT X 10 REPS. COMPLETED BUE TRICEP W/C PUSHUPS X 15 REPS FOR INCREASE I SIT TO STAND TASK. PATIENT DECLINE TO COMPLETE MORE OT VERBALIZING THAT HE WAS TOO TIRED. NEMO BRUMFIELD/Mino
--- NOTE | 2017-01-13 11:29 | NUR ---
Leisure,goals and exercise Patient in activity room during group this am however patient asleep and unable to wake to participate. Patient just finished with occupational therapy prior to group.
--- NOTE | 2017-01-13 11:57 | NUR ---
NOTIFIED OF PT BEING DISCHARGED AND MED REC NEEDING COMPLETED.
--- NOTE | 2017-01-14 08:00 | NUR ---
PHYSICAL THERAPY CO-SIGN I approve of the Phyical Therapy notes written above. JANEEN GAITAN PT
--- NOTE | 2017-01-14 16:57 | NUR ---
OCCUPATIONAL THERAPY CO-SIGN I approve of the Occupational Therapy notes written above. EJ JOHN OTR/Mino
== END 2017-01-13 13:30 | disposition other institution (70) | DRG 885 ==
LOC: 3N 14:21
PROVIDERS: Internal Medicine; Registered Nurse; ADMIT Psychiatry & Neurology Psychiatry
PROC: 0HBRXZZ Excision of Toe Nail, External Approach (ICD-10-PCS; principal; 2017-01-07)
DX: F31.60 Bipolar disorder, current episode mixed, unspecified (principal); E87.8 Other disorders of electrolyte and fluid balance, not elsewhere classified; I82.403 Acute embolism and thrombosis of unspecified deep veins of lower extremity, bilateral; L03.115 Cellulitis of right lower limb; E87.1 Hypo-osmolality and hyponatremia; F20.0 Paranoid schizophrenia; L03.116 Cellulitis of left lower limb; I69.359 Hemiplegia and hemiparesis following cerebral infarction affecting unspecified side; E66.9 Obesity, unspecified; I10 Essential (primary) hypertension; M19.90 Unspecified osteoarthritis, unspecified site; K21.9 Gastro-esophageal reflux disease without esophagitis; R73.9 Hyperglycemia, unspecified; B35.1 Tinea unguium; R15.9 Full incontinence of feces; N32.89 Other specified disorders of bladder; I87.2 Venous insufficiency (chronic) (peripheral); G89.29 Other chronic pain; L97.519 Non-pressure chronic ulcer of other part of right foot with unspecified severity; L97.529 Non-pressure chronic ulcer of other part of left foot with unspecified severity; B35.3 Tinea pedis; R26.2 Difficulty in walking, not elsewhere classified; N40.1 Benign prostatic hyperplasia with lower urinary tract symptoms; F17.210 Nicotine dependence, cigarettes, uncomplicated; N39.498 Other specified urinary incontinence; Z71.6 Tobacco abuse counseling; Z91.041 Radiographic dye allergy status; Z84.89 Family history of other specified conditions; Z79.899 Other long term (current) drug therapy; Z79.82 Long term (current) use of aspirin; Z68.39 Body mass index [BMI] 39.0-39.9, adult

== ENCOUNTER 2017-01-29 12:57 | Inpatient (IN) | payer MEDICARE, OTHER ==
[~2017-01-29] VITALS: Ht 182.8 cm; Wt 124.7 kg
--- NOTE | ~2017-01-29 | PR ---
[place], [place] PROGRESS NOTE [id number] #[facility] [id number] ROOM: 312 DOCTOR: ADOLPH MONTERO,MY BIRTHDATE: [birth year] DOS: 02/04/2017 ROOM NUMBER: [id number]. CHIEF COMPLAINT: "Good morning." SUMMARY OF THE VISIT: The patient was interviewed in the dining area today after finishing breakfast. The patient voiced no complaints or concerns today. States he slept well last night with just Seroquel 200 mg at bedtime and reports tolerating the medication well. He engaged readily in conversation. Denies any suicidal thoughts, plan or intent. States he just wants to go to do different facility when discharged from here. MENTAL STATUS: The patient is alert and oriented to person, place and time. Mood does seem to be trending towards euthymia. Affect is more appropriate. No somnolence or lethargy noted. There are no symptoms of kiera, hypomania, delusions or paranoia noted. There are no overt auditory or visual hallucinations. Memory for the most part is intact. PLAN: We will continue current treatment plan. We will also renew Ativan p.r.n. in case requires intervention. We will engage the patient in individual and armijo milieu with the ultimate plan is to be discharged to a alf once the patient is psychiatrically stable. MY ADOLPH, DO LILY RILEY MD CM:PNTRANS [phone] MY ADOLPH DO 02/04/17 1150 interface
--- NOTE | ~2017-01-29 | PR ---
[place], [place] PROGRESS NOTE [id number] #: [id number] ROOM: 312 DOCTOR: ADOLPH MONTERO,MY BIRTHDATE: [birth year] DOS: 01/31/2017 CHIEF COMPLAINT: "I have cellulitis in my left small toe." SUMMARY OF THE VISIT: The patient was interviewed in the dining area today. The patient complains that he has cellulitis at left toe that needed to be looked at and treated. According to record, the patient has been getting Keflex for his cellulitis. States he does not want to go back to [facility] and requested to be place at [facility] when he is discharged from here. Said he wants to lose some weight; therefore, wants some diet pills today. MENTAL STATUS: Alert, awake and oriented with time gaps. Mood seems somewhat grandiose and expansive still, but with some improvement. There is no overt evidence of auditory or visual hallucination or agitation noted. PLAN: We will increase Seroquel 200 mg at bedtime to help with grandiosity. Continue to engage patient in individual and group activity. MY ADOLPH, DO LILY RILEY MD CM:PNTRANS [id number] MY ADOLPH DO 02/03/17 0922 interface
--- NOTE | ~2017-01-29 | PR ---
[place], [place] PROGRESS NOTE [id number] #: [id number] ROOM: 312 DOCTOR: LIAT DRAPER,AKHIL BIRTHDATE: [birth year] DOS: CHIEF COMPLAINT: "Why it is cold here?" SUBJECTIVE: The patient is seen this morning in dining area, sitting in his wheelchair. He did engage in conversation, though it is very hard to understand because of some speech issues. He is still very tangential, jumping topics. He has been taking his medicines, slept okay last night, had his breakfast and staff has no other concerns at present. MENTAL STATUS EXAMINATION: The patient is awake, alert, oriented to person, place, approximate to time. Fair eye contact. Speech still tangential, though better than yesterday since he could stay on topic better. Mood still expansive. Affect blunted. No overt psychosis at present. PLAN: The patient is showing some improvement. His Depakote level this morning is 82.5, so we shall continue with the same dose of the medicines and shall try and engage him in armijo milieu. AKHIL JOSUE MD CM:PNKINJAL [phone] AKHIL JOSUE MD 02/02/17 1425 interface
--- NOTE | ~2017-01-29 | PR ---
[place], [place] PROGRESS NOTE [id number] #: [id number] ROOM: 312 DOCTOR: LILY RILEY MD BIRTHDATE: [birth year] DOS: 02/07/2017 CHIEF COMPLAINT: "Morning." SUMMARY OF THE VISIT: The patient was rather somnolent and was dozing in his wheelchair in the dining area. He awoke briefly to say morning, but then dozed back off. He has been increasingly more upset about the delay in his discharge and has been acting out by being verbally inappropriate at times. We are still awaiting the recertification through [facility] to determine if we can successfully discharge him then to [facility]. MENTAL STATUS: He is alert and oriented. Overall, he does seem to have improved and there is no depression, kiera or psychotic symptoms present. There is some somnolence, but he has received some p.r.n. intervention. PLAN: At this point, given the fact that he is receiving Ativan and is actively requesting it, I will be proactive and start him on Vistaril 50 mg q. 6 hours straight. I would prefer to use a nonaddicting agent given his past substance abuse history. I will recheck valproic acid level today at 1500 hours to determine if it is still therapeutic and not too high or too low. Once we are able to discharge because of the recert [facility], we will do so. LILY RILEY MD CM:PNTRANS [id number] LILY RILEY MD 02/08/17 0506 interface
--- NOTE | ~2017-01-29 | DS ---
[place], [place] DISCHARGE SUMMARY NAME: PRASANTH STEVENSON UNIT #: [id number] ROOM: 312 DOCTOR: LILY RILEY MD BIRTHDATE: [birth year] DOS: 02/06/2017 ADDENDUM CHIEF COMPLAINT: "Am I going today. If I am not, I am going to need some more of that Ativan." SUMMARY OF THE VISIT: The patient was interviewed in the dining area where he was sitting comfortably in his wheelchair. He engaged readily in conversation and reported that he was disappointed in the fact that he did not leave here and go to his new facility. He is hopeful that this facility will more adequately meet his needs and is voicing positive plans for the future. MENTAL STATUS: The patient is alert and oriented. He is in a fairly euthymic state. There are no symptoms of hypomania or kiera. There are no voiced suicidal, homicidal or self-injurious thoughts. There are no auditory or visual hallucinations noted. Discharge is as per the note dictated 02/05/2017. DISPOSITION: To [facility] at [facility] and I will follow him upon his discharge there. LILY RILEY MD CM:DISCHARG [phone] LILY RILEY MD 02/06/17 1711 interface
--- NOTE | ~2017-01-29 | WRIGHTHP ---
[place], [place] PATIENT HISTORY AND PHYSICAL EXAM NAME: PRASANTH STEVENSON [facility] #: [id number] UNIT #: [id number] ROOM: 312 DOCTOR: LILY RILEY MD BIRTHDATE: [birth year] DOS: 01/30/2017 INITIAL PSYCHIATRIC EVALUATION CHIEF COMPLAINT: "I am going to hire hit man to kill those bastards." HISTORY OF PRESENT ILLNESS: This is a 61-year-old white male who was sent on an involuntary basis from [facility] in [place], [place]. The patient had previously been here for an exacerbation of his bipolar disorder and once again now is admitted due to severe grandiosity and paranoia. The patient has actively been stating he is going to call a friend he knows in [place], who is a hit man to kill both the childcare center administrator and the outdoor studies director at [facility]. He states he is tired of what they are doing to him and wants them out of the way, so he can continue with his life of fame. He is very grandiose, stating that he knows people like Dharmesh Skaggs and is going to have them visit him here in the hospital. He has not been sleeping well at the snf, further exacerbating his manic tendencies. He is admitted now to rule out organic factors, to attempt to stabilize on medication and to return to the least restrictive environment when psychiatrically stable. PAST MEDICAL HISTORY: Remarkable for gait disturbance, osteoarthritis, bladder spasm, benign prostatic hypertrophy, chronic venous stasis, GERD, CVA with residual hemiparesis, hypertension, obesity and a long history of bipolar disorder. MENTAL STATUS: The patient is alert and oriented with significant time gaps. Mood does seem to be rather expansive and grandiose with some depressive overtones as well. He is very paranoid and upset, especially with the administration at his snf. He openly states he does not want to return there. There are no auditory hallucinations noted; however, memory has gaps for short term events. DIAGNOSIS: Bipolar type 1, mixed. PLAN: He just received his normal Invega Sustenna dose on the day prior to admission. I will maintain the schedule there. I will discontinue his Risperdal in lieu of Seroquel, utilizing it as a secondary antipsychotic to help with the grandiosity; at the same time I will discontinue his oral Risperdal as this is redundant with the Invega. We will engage in individual and armijo milieu activity. We will discuss with [facility] possible placement into an alternative placement, engage in individual and armijo milieu activity, discharging then when stable. [place], [place] PATIENT HISTORY AND PHYSICAL EXAM NAME: PRASANTH STEVENSON UNIT #: [id number] ROOM: 312 DOCTOR: LILY RILEY MD BIRTHDATE: [birth year] LILY RILEY MD CM:HISPHYS:PATIENT HISTORY AND PHYSICAL EXAMINATION [phone] LILY RILEY MD 01/30/17 1125 interface
--- NOTE | ~2017-01-29 | PR ---
[place], [place] PROGRESS NOTE NAME[id number] UNIT #: [id number] ROOM: 312 DOCTOR: LIAT DRAPER,AKHIL BIRTHDATE: [birth year] DOS: CHIEF COMPLAINT: "I want cortisone shot." SUBJECTIVE: The patient is 61 years old admitted with exacerbation of bipolar symptoms. Today seen in his room, lying in bed. He has garbled speech, was hard to make out what he wants to say, though he had been very tangential, jumping topics, could not stay focused. As per nurse's report, he has been taking his medicines. He states that he slept better last night, had his breakfast this morning and he has not been aggressive, rather feeling a little drowsy this morning. MENTAL STATUS EXAMINATION: The patient is alert, oriented with time gaps. Speech is garbled, maybe because of previous stroke. Broken eye contact. He is very tangential, jumping topics. Mood is still very expansive and grandiose. No overt psychosis at present. PLAN: Needs further stabilization, so we shall continue his care and continue his medicines. We shall get his Depakote level tomorrow morning and adjust the dose as needed. We shall try and engage him in armijo milieu as he is more stable. AKHIL JOSUE MD CM:PNTRANS [id number] AKHIL JOSUE MD 02/01/17 1332 interface
--- NOTE | ~2017-01-29 | PR ---
[place], [place] PROGRESS NOTE [id number] UNIT #: [id number] ROOM: 312 DOCTOR: LILY RILEY MD BIRTHDATE: [birth year] DOS: 02/03/2017 CHIEF COMPLAINT: "Do you find a place for me yet." SUMMARY OF THE VISIT: The patient was interviewed as he sat in the dining area, finishing his breakfast. He engaged readily in conversation and was again fixated on leaving [facility] and finding in an alternative placement. He did report to me. He is sleeping well and is eating well. He does seem a little somnolent this morning. MENTAL STATUS: He is alert and oriented to person, place and approximate to time. Mood does seem to be trending towards euthymia. Affect is more appropriate. There are no symptoms of kiera or hypomania. There are no overt auditory or visual hallucinations. No delusions are present. Short, intermediate and long-term memory for the most part are intact. PLAN: I will discontinue the Rozerem. Now that he is on Seroquel 200 mg at bedtime. This should be sedative enough that he should not necessarily need like the Rozerem. I will discontinue and monitor. If he does require, I will restart. LILY RILEY MD CM:PNTRANS [id number] LILY RILEY MD 02/03/17 1218 interface
--- NOTE | ~2017-01-29 | DS ---
[place], [place] DISCHARGE SUMMARY NAME: PRASANTH STEVENSON [facility] #: [id number] UNIT #: [id number] ROOM: 312 DOCTOR: LILY RILEY MD BIRTHDATE: [birth year] DOS: 02/05/2017 CHIEF COMPLAINT: "I am going to hire hit man to kill those bastards." HISTORY OF PRESENT ILLNESS: This is a 61-year-old white male who was sent on an involuntary basis from [facility] in [place], [place]. The patient was recently here due to an exacerbation of his bipolar disorder and is now readmitted due to increased grandiosity and paranoia. The patient has actively been stating that he is going to call a friend. He knows who will be a hit man and kill both the data security administrator and the director project management at [facility]. He also states that he is very famous and he knows people like Dharmesh Skaggs and he is going to have them visit him in the hospital. He had not been sleeping well while at the group home, further exacerbating his manic tendencies. He is admitted now to rule out organic factors and attempt to re-stabilize on medication. PAST MEDICAL HISTORY: Remarkable for gait disturbance, osteoarthritis, bladder spasm, benign prostatic hypertrophy, chronic venous stasis, GERD, CVA with residual hemiparesis, hypertension, obesity and a long history of bipolar disorder. SUMMARY OF HOSPITAL COURSE: The patient was admitted to the unit where he just received his Invega Sustenna, so that order was continued for the next month. Given the fact that he was still having breakthrough bipolar symptoms and sleep disturbance, his oral Risperdal was discontinued in lieu of Seroquel 100 mg at bedtime. This had an immediate impact positively on his sleep, dose was increased then from 100 to 200 and at this dose, his kiera and mood lability and paranoia ceased. He tolerated the Seroquel well. Given the fact that he was so beneficial in helping sleep, his trazodone and Rozerem with both discontinued due to redundancy. With this combination of medications, he gradually improved to the point where he became euthymic and voiced positive plans for the future. He did openly request that he will not return back to [facility], stating that he would like to find a place with much younger residents more his age, so he can have the ability to have conversations and interact more appropriately. manager of creative services were very important in securing a placement at [facility]. MENTAL STATUS AT DISCHARGE: The patient was alert and oriented with time gaps. Mood was strongly trending towards euthymia. Affect was much more appropriate. There were no symptoms of kiera or hypomania. There were no auditory or visual hallucinations, no delusions, no paranoia. Short-term memory had gaps, otherwise he was intact. FINAL DIAGNOSES AT DISCHARGE: Bipolar type 1, mixed with psychotic features. PLAN: All of his prescriptions have been e-scribed and he will be admitted to [facility]. [place], [place] DISCHARGE SUMMARY NAME: [facility]SON [facility] [id number] UNIT #: [id number] ROOM: 312 DOCTOR: LILY RILEY MD BIRTHDATE: [birth year] LILY RILEY MD CM:REALARG [phone] LILY RILEY MD 02/05/17 1137 interface
[~2017-01-29 12:57] MED LIST: AMLODIPINE BESY10 MG PO; ASPIRIN81 M1 PO; BIOTENE MOIST44.3 ML PO; BUMETANIDE1 MG PO; CLONIDINE0.2 MG PO; COREG12.5 M1 PO; DEPAKOTE ER250 MG PO; DERMASEPTIN OI113 GM T; DIVALPROEX SOD500 M1 PO; DULOXETINE HCL30 MG PO; DULOXETINE HCL60 MG PO; FLOMAX0.4 MG PO; HALDOL5 MG/1 ML IJ; INVEGA SUSTENN156 MG IM; KEFLEX500 M1 PO; LISINOPRIL20 MG PO; LOTRISONE 0.05%45 GM T; MELATONIN3 MG PO; MYRBETRIQ25 M1 PO; ONE-A-DAY ESSE1 EACH PO; PRISTIQ50 MG PO; RISPERIDONE1 M1 PO; RISPERIDONE1 MG PO; ROZEREM8 MG PO; TYLENOL325 M2 PO; VISTARIL50 MG PO; ZOSTRIX 0.025%,60 GM T
[2017-01-29] MEDS ORDERED: BUMETANIDE1 MG PO (13:27)
[2017-01-29] MEDS ORDERED: ROZEREM8 MG PO (13:29)
--- NOTE | 2017-01-29 15:38 | NUR ---
DR. HARTMAN NOTIFIED OF NEW ADMISSION, DX LIST AND MEDICATONS UPDATED FOR [facility].
[2017-01-29 15:41] VITALS: BP 164/88
--- NOTE | 2017-01-29 17:35 | NUR ---
PATIENT OFF UNIT FOR XRAY TO LEFT HIP
--- NOTE | 2017-01-29 17:49 | NUR ---
PATIENT RETURED BACK TO UNIT FROM XRAY TO LEFT HIP
--- NOTE | 2017-01-29 18:50 | NUR ---
PRASANTH STEVENSON a 61 year old M admitted via stretcher from the ADMITTING as a emergency 72 hr. hold admission. Arrived on unit at 1533. ALLERGIES: IODINE. Vital signs are: [id number] 164/88. The client signed the following forms with stated understanding: Authorization For The Release of Medical Information, Clothing List, Consent to Voluntary Admission and Hospitalization, Consent and Release Forms/Receipt of Rights, Acknowledgement of Advance Directive Information, Behavioral Health Consent Form, and Informed Consent of Medications. [facility] A search was conducted and hazardous articles were removed. Client was oriented to the unit. LILLIANA ARROYO
[2017-01-29 20:00] VITALS: BP 156/88
--- NOTE | 2017-01-30 01:17 | NUR ---
PT A&O X4. STABLE MOOD. CALM AND INTERACTIVE WITH STAFF AND PEERS. MEDICATION COMPLIANT. DENIES HALLUCINATIONS AND DELUSIONS. NO S/S OF DISTRESS NOTED. NO C/O PAIN. DENIES WANTING ANY HARM DONE TO STAFF AT FACILITY. STATED HE "NEEDED A VACATION". PLAN TO CONTINUE WITH CURRENT TX PLAN. RIGHT SIDED FACIAL DROOP D/T HX OF CVA. UNABLE TO LIFT LEFT ARM UP TO TOUCH RIGHT SHOULDER D/T AN OLD SHOULDER BREAK, PER PT. MEDICATION EDUCATION COMPLETED DURING MED [employer]. SEE [facility] FLOWSHEET FOR SPECIFIC MONITORING.
[2017-01-30 06:09] LABS: ALKALINE PHOSPHATASE 45 U/L (45-117); BASO % 0.2 % (0.0-1.0); BUN 22 mg/dl (7-24); CHLORIDE 95 mmol/L (98-107); CHOLESTEROL 171 mg/dL (<200); CREATININE 1.07 mg/dL (0.70-1.30); EOS # 0.4 10*3/uL (0.0-0.4); EOS % 3.6 % (1.0-4.0); HDL CHOLESTEROL 37 mg/dl (40-60); HEMATOCRIT 38.4 % (42.0-52.0); HEMOGLOBIN 12.6 g/dl (14.0-18.0); LDL CHOLESTEROL 107 mg/dL (9-159); LYMPH # 1.6 10*3/uL (1.3-4.4); LYMPH % 15.6 % (27.0-41.0); MEAN CORPUSCULAR HGB 31.8 pg (27.0-31.0); MEAN CORPUSCULAR HGB CONC 32.8 g/dl (33.0-37.0); MEAN PLATELET VOLUME 10.1 fl (9.6-12.3); MONO # 1.5 10*3/uL (0.1-1.0); MONO % 14.6 % (3.0-9.0); NEUT # 6.7 10*3/uL (2.3-7.9); PLATELET COUNT AUTOMATED 217 10*3/uL (130-400); POTASSIUM 4.3 mmol/L (3.5-5.1); RED BLOOD COUNT 3.96 10*6/uL (4.50-5.90); RED CELL DISTRI WIDTH 14.2 % (0-14.5); SGOT/AST 8 IU/L (3-35); SGPT/ALT 15 U/L (12-78); SODIUM 137 mmol/L (136-145); TOTAL PROTEIN 7.5 gm/dL (6.4-8.2); TRIGLYCERIDES 133 mg/dl (<150); VLDL CHOLESTEROL 27 mg/dL (6-40); WHITE BLOOD COUNT 10.2 10*3/uL (4.8-10.8)
[2017-01-30 07:10] LABS: VITAMIN D, 25-HYDROXY 35.7 ng/mL (30-100)
--- NOTE | 2017-01-30 07:25 | NUR ---
pt slept approximately 8 hours this shift with no interruptions. no s/s of distress noted. no c/o pain. see [facility] flowsheet for specific monitoring.
[2017-01-30 08:55] VITALS: BP 142/75
--- NOTE | 2017-01-30 09:07 | NUR ---
MEDICATION COMPLIANT WITHOUT DIFFICULTY THIS MORNING. SITTING IN W/C IN DINING ROOM AT THIS TIME. ATE A BANANA AND DRANK 1 OJ FOR BREAKFAST. STATES HE SLEPT WELL LAST NIGHT AND IS TIRED THIS MORNING, FALLING ASLEEP AT THE TABLE. RESPIRATIONS EASY AND EVEN. NO DISTRESS NOTED.
--- NOTE | 2017-01-30 09:25 | NUR ---
PATIENT OFF UNIT IN CARE OF TRANSPORTER FOR VENOUS DOPPLER.
--- NOTE | 2017-01-30 09:41 | NUR ---
PT BACK TO UNIT AT THIS TIME.
--- NOTE | 2017-01-30 10:12 | NUR ---
SPEECH PATHOLOGY Screening completed. Speech pathology services are not recommended at this time. There are no reports of dysphagia and no reports of acute communication difficulty. TOVA DOUGLAS MSCCC-FRONT ATTENDANT
--- NOTE | 2017-01-30 10:49 | NUR ---
Goals,exercise & [place] [employer] Patient was in attendence for group but would not participate. Patiant stated "No I want to sleep." and went back to sleep in his chair
--- NOTE | 2017-01-30 11:31 | NUR ---
Patient approached for Occupational Therapy evaluation on the [facility] Unit. Patient is seated in a standard size manual w/c, leaning significantly to left side, lethargic, drooling from left side of mouth and unintelligible speech. Patient not able to participate in OT d/t severe lethargy. OTR supported patient near table and suggested patient be put back to bed. OTR will attempt at a later date. Tri Dotson OTR/Mino
--- NOTE | 2017-01-30 11:34 | NUR ---
PHYSICAL THERAPY PAtient in day room. Too lethargic for PT evaluation this date, staff aware. Slumped in wheelchair chair, leaning to left. Proper closer to tabel with blankets used to protect skin and (B) UE by this PT and OT. Will attempt at a later date. Thank you for this referral. Dionne Thapa,PT
--- NOTE | 2017-01-30 12:43 | NUR ---
LEO faxed referral to [facility] for alternative placement for pt at pt's request. LEO notified Frannie, hospital liaison from [place] that Dr. acuña and pt. requesting referral to alternative placement for pt. Frannie to get back with LEO. LEO also asked Frannie about pt. wheelchair that he had come with last time he was admitted and Frannie states "I can bring it down, probably won't be until tomorrow."
--- NOTE | 2017-01-30 14:43 | NUR ---
LEO met with pt again. pt. states "I want to come to [facility], because it will be too much to move that far, you are right, I can't move that far away." LEO will fax referrals tomorrow to [facility].
[2017-01-30 17:47] LABS: BILIRUBIN NEGATIVE (NEGATIVE); BLOOD NEGATIVE (NEGATIVE); CLARITY CLEAR (CLEAR); COLOR YELLOW (YELLOW); GLUCOSE NEGATIVE (NEGATIVE); KETONE TRACE (NEGATIVE); LEUKO ESTERASE NEGATIVE (NEGATIVE); NITRITE NEGATIVE (NEGATIVE); PH 5.5 (5.0-9.0)
[2017-01-30 17:57] LABS: BACTERIA 1+; MUCOUS TRACE; WBC 0-2 wbc/hpf (0-5)
[2017-01-30 20:00] VITALS: BP 149/70
--- NOTE | 2017-01-31 00:47 | NUR ---
24 HR chart check completed.
--- NOTE | 2017-01-31 05:05 | NUR ---
PT SLEPT GREATER THAN 8 HOURS THIS SHIFT. FALL PRECAUTIONS MAINTAINED. Q15 MINUTE SAFETY CHECKS MAINTAINED. A&O X4. STABLE MOOD. ORGANIZED THOUGHTS. NO HALLUCINATIONS OR DELUSIONS NOTED. CALM AND INTERACTIVE WITH STAFF AND PEERS. MEDICATION COMPLIANT. NO VERBAL AGRESSION NOTED. NO S/S OF DISTRESS NOTED. NO C/O PAIN. REMAINS ON KEFLEX FOR POSSIBLE CELLULITIS TO BLE. PLAN IS TO CONTINUE WITH CURRENT TREATMENT PLAN AND ENGAGE IN GROUPS AND ACTIVITIES. CONTINENT THIS SHIFT. ADEQUATE FLUID INTAKE NOTED. SEE [facility] FLOWSHEET FOR SPECIFIC MONITORING.
[2017-01-31 07:54] VITALS: BP 155/83
--- NOTE | 2017-01-31 09:16 | NUR ---
01/30/17 Afternoon Jamila Craft & Reminiscing Patient did attend group as well as participated. Patient was speeaking inappropriate and reminded that was no acceptable. Patient continued and then was told if it did not stop he would have to leave the room. Patient laughed then stopped. Patient stayed for just a short time longer then left group. There were no other issues while in group
--- NOTE | 2017-01-31 10:00 | NUR ---
PT SLEEPING IN BED DURING MORNING MED PASS, EASILY AROUSABLE VIA VERBAL STIMULI. MEMORY APPEARS INTACT. RESPIRATIONS EASY ON ROOM AIR. MOOD IS STABLE, AFFECT IS FLAT. SPEECH IS SLURRED, BUT COHERENT, ABLE TO MAKE NEEDS KNOWN AND CARRY ON APPROPRIATE CONVERSATION WITHOUT DIFFICULTY. PT DENIES SI/HI. PT DENIES HALLUCINATIONS, NO RESPONSE TO INTERNAL STIMULI NOTED. NO PARANOIA NOTED. PT VERBALIZED DISPLEASURE AT [facility], WHERE HE WAS LIVING PRIOR TO ADMISSION. PT STATES "I'M NOT GOING BACK THERE. IT'S RIDICULOUS. I'M GOING TO GET THAT PLACE SHUT DOWN." PT IS MEDICATION COMPLIANT WITHOUT DIFFICULTY. PT USES WHEELCHAIR FOR MOBILITY AND SAFETY, COMPLIANT WITH FALLING STAR PROGRAM. PT RELIANT ON STAFF FOR ASSISTANCE WITH ADLS. FEEDS SELF WITH ADEQUATE FLUID INTAKE. NO DISTRESS NOTED. Q15 MIN SAFETY CHECKS MAINTAINED, REFER TO [facility] FLOWSHEET FOR SPECIFIC MONITORING.
--- NOTE | 2017-01-31 10:14 | NUR ---
pt. wheeelchair to be delivered today after lunch by christine elkins from [facility] derek Kathleen, hospital liaison from [facility].
--- NOTE | 2017-01-31 10:15 | NUR ---
LEO spoke with Sarina, the SW from [place] in regards to updating the pasrr. updated info. sent yesterday and refaxed again today. Sarina asked why update would need to be done and LEO explained that she needs to send in the "chnage of condition" form to the state to update the pasrr. Sarina said she would do so once she rec'd info. from this SW.
--- NOTE | 2017-01-31 11:00 | NUR ---
SERGIO JOHN OF HOSPITALIST GROUP ON UNIT TO SEE PT AT THIS TIME. MADE AWARE MEDICAL MEDS HAVE NOT BEEN REORDERED OF THIS TIME. BEBETO STATES TO HAVE WOUND CARE NURSE ASSESS PT D/T CELLULITIS/BLISTER TO TOP OF LEFT FOOT.
--- NOTE | 2017-01-31 12:18 | NUR ---
LEO spoke with Dr. acuña in regards to pt. requesting [facility] placement, Dr. acuña states that pt. agreed to go to [facility] but suggested a referral be sent also to [facility] in [facility]. LEO sent referral to [facility].
--- NOTE | 2017-01-31 13:15 | NUR ---
PHYSICAL THERAPY PAtient with staff in discussion and then on the phone. Awake and alert this date. Staff reports he is usually in an electric wheelchair at his [facility] care facility. Will attempt at a later date. Thank you for this referral. Dionne Thapa,PT
--- NOTE | 2017-01-31 13:22 | NUR ---
SW met with pt. pt. smiling and states "I get to go to another facility, SW let pt. know that referrals have been sent to [facility] and [facility]". pt appeared "pleased".
--- NOTE | 2017-01-31 13:35 | NUR ---
Goals,Exercise & Painting Patient did not attend group patient was asleep in his room. Did not awaken him
--- NOTE | 2017-01-31 13:45 | NUR ---
SERGIO ON UNIT, MADE AWARE WOUND CARE NURSE UNABLE TO SEE PT TODAY. STATES TO CONTINUE LOTRISONE CREAM TO BLE ORDERED FROM [facility].
--- NOTE | 2017-01-31 14:08 | NUR ---
PTS PERSONAL WHEELCHAIR ARRIVED ON UNIT AT THIS TIME DROPPED OFF BY FACILITY STAFF FROM [place].
--- NOTE | 2017-01-31 14:41 | NUR ---
PT ALERT, APPROPRIATE, CONVERSING WITH STAFF. PT THEN REQUESTED TO GO TO BED AND TAKE A NAP.
--- NOTE | 2017-01-31 14:56 | NUR ---
PHYSICAL THERAPY PAtient now in bed sleeping. Dionne Foster,PT
--- NOTE | 2017-01-31 18:46 | NUR ---
SHIFT CHART CHECK COMPLETED.
[2017-01-31 20:00] VITALS: BP 170/90
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
--- NOTE | 2017-02-01 02:07 | NUR ---
24 HR chart check completed.
--- NOTE | 2017-02-01 05:33 | NUR ---
PT SLEPT APPROXIMATELY 7 HOURS THIS SHIFT. NO S/S OF DISTRESS NOTED. NO C/O PAIN. SEE [facility] FLOWSHEET FOR SPECIFIC MONITORING.
[2017-02-01 08:18] VITALS: BP 138/78
--- NOTE | 2017-02-01 09:05 | NUR ---
REMOVED NOTURNAL PULSE OX FROM PTS ROOM. NURSE SAID PT DID NOT WEAR IT ALL NIGHT. KEPT TAKING IT OFF.
--- NOTE | 2017-02-01 09:59 | NUR ---
PATIENT IS ALERT TO PERSON, PLACE, TIME AND SITUATION; ABLE TO VOICE NEEDS. RESPIRATIONS ARE EASY, NON-LABORED ON ROOM AIR. MOOD IS IRRATIBLE AT TIMES. ORGANIZED AND GOAL DIRECTED. DENIES ANY HALLUCINATIONS, DELUSIONS, HI/SI OR PAIN. INTERACTIVE WITH STAFF; IN GROUP SESSION RESTING WITH EYES CLOSED. MEDICATION COMPLIANT WITH EDUCATION PROVIDED. 1 PERSON ASSIST WITH ACTIVITIES OF DAILY LIVING WITH MIXED INCONTINENCE OF BLADDER. MEAL INTAKES ARE GOOD WITH ADEQUATE FLUIDS. SELF PROPELS IN WHEELCHAIR. Q 15 MINUTE SAFETY CHECKS. CONTINUE TO MONITOR FOR AGGRESSION AND REDIRECT NEEDED.
--- NOTE | 2017-02-01 11:22 | NUR ---
ASSISTED PATIENT TO BED X 2 ASSIST WITH WOUND CARE NURSE, INCONTINENCE CARE PROVIDED. AREA TO LEFT BOTTOCK 1.5CMX 1.5CM X 0CM, PURPLE IN COLOR, NO PAIN NOTED. DR. BURROUGHS NOTIFIED FOR WOUND CARE ORDER. CLEANSE AREA WITH NS, APPLY SURE PREP, COVERED WITH FOAM BORDER DRESSING.
--- NOTE | 2017-02-01 11:27 | NUR ---
This nurse asked to evaluate patient. Patient taken to room with nurse. Left buttocks assessed. A 1.5cm x 1.5cm x 0cm DTI noted. No redness noted to periwound. Bilateral lower extermities red in color with no open areas or drainage noted. Dr. Flores called for wound care orders. Cleanse area with NS and apply sureprep allow to dry and cover with optifoam dressing.
--- NOTE | 2017-02-01 12:28 | NUR ---
Reminiscing, crafts and goals Patient present in activity room however slept throughout group. Patient approached throughout group however difficult to arouse.
--- NOTE | 2017-02-01 13:42 | NUR ---
PATIENT WAS OFFERED TO LAY DOWN IN BED TO OFF LOAD PRESSURE FROM BUTTOCK. PATIENT REFUSED BUT DID REPOSITIONED SELF IN WHEEL CHAIR.
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
--- NOTE | 2017-02-01 15:32 | NUR ---
PATIENT COMPLAINED OF HEADACHE, PRN TYLENOL 650MG PO GIVEN AT THIS TIME. ENCOURAGE PATIENT TO LAY DOWN, PATIENT RESTING IN BED WITH HOB ELEVATED. CALL LIGHT WITH IN REACH.
--- NOTE | 2017-02-01 16:00 | NUR ---
Shift chart check completed.
--- NOTE | 2017-02-01 16:19 | NUR ---
OXIMETRY SUMMARY REPORT COMPLETED, DR BURROUGHS NOTIFIED AT THIS TIME.
--- NOTE | 2017-02-01 16:28 | NUR ---
PRN TYLENOL EFFECTIVE, NO FURTHER COMPLAINTS OF HEADACHE.
[2017-02-01 19:53] VITALS: BP 142/78
--- NOTE | 2017-02-01 21:00 | NUR ---
DENIES ANY HOMICIDAL IDEATIONS AT THIS TIME. DOES DISPLAY GRANDIOS ATTITUDE WITH PEERS IN DININGROOM. INTRUSIVE WITH OLDER PEERS BUT IS ABLE TO BE REDIRECTED. ENCOURAGED HE AND PEER CLOSE TO HIS AGE TRY TO AVOID SUBJECTS THAT CAUSE IRRITATION AND ARGUMENTS. STATES DAY WAS OK AND HE IS FEELING BETTER
--- NOTE | 2017-02-02 01:08 | NUR ---
REFUSES TO ALLOW STAFF TO TURN HIM OFF HIS BACK. YELLS VULGARITIES WHEN ASKED
--- NOTE | 2017-02-02 04:12 | NUR ---
CONTINUES TO REFUSE TO TURN OFF BACK
--- NOTE | 2017-02-02 04:13 | NUR ---
24 HR chart check completed.
--- NOTE | 2017-02-02 06:52 | NUR ---
saturated entire bed with urine. when asked why he doesn't call for help he replies "its easier to just go and not get up" unable to redirect
[2017-02-02 08:00] VITALS: BP 136/86
--- NOTE | 2017-02-02 10:40 | NUR ---
PT IS ALERT AND ORIENTED. NAPS INTERMITTENTLY T/O THE SHIFT. MEDICATION COMPLIANT WITHOUT DIFFICULTY. NO HALLUCINATIONS, DELUSIONS, OR BEHAVIORS NOTED. APPETITE GOOD FOR BREAKFAST, ATE 100%. AFFECT IS BLUNTED.
--- NOTE | 2017-02-02 19:38 | NUR ---
GIVEN COPY OF SLEEP APNEA ASSESSMENT AT THIS TIME.
[2017-02-02 20:11] VITALS: BP 132/84
--- NOTE | 2017-02-03 03:58 | NUR ---
PATIENT ALERT AND ORIENTED X3. MOOD IS STABLE. CALM AND INTERACTIVE WITH PEERS AND STAFF. DURING 1:1 PATIENT STATED "I THINK IM DOING BETTER, DONT YOU THINK SO?". DENIES FEELINGS OF DEPRESSION, SI/HI, AND HALLUCINATIONS. NO NOTED RESPONDING TO INTERNAL STIMULI. PATIENT VERBALIZED UNDERSTANDING AFTER MEDICATION EDUCATION, MEDICATION COMPLIANT WITHOUT DIFFICULTY. NO PHYSICAL COMPLAINTS VOICED. PATIENT CURRENTLY BED WITH HOB ELEVATED, EYES CLOSED. NO RESPIRATORY DISTRESS NOTED.NO SIGNS OR SYMPTOMS OF DISTRESS. REFER TO [facility] FLOWSHEET FOR SPECIFIC MONITORING.
--- NOTE | 2017-02-03 05:57 | NUR ---
PATIENT OBSERVED ON Q 15 MIN SAFETY CHECKS TO HAVE SLEPT APPROX 7 HOURS WITH 1 BRIEF AWAKENING TO USE THE RESTROOM WITH ASSISTANCE OF STAFF. NO SIGNS OR SYMPTOMS OF DISTRESS NOTED.
--- NOTE | 2017-02-03 05:57 | NUR ---
24 HOUR CHART CHECK COMPELTED.
[2017-02-03 07:52] VITALS: BP 131/82
--- NOTE | 2017-02-03 08:58 | NUR ---
02/02/17 Afternoon Group Jamila Njft & Reminiscing Patient was in attendence for group but did not participate. Patient was asleep in his chair. I woke him and encouraged him to participate but he stated " No I'll just watch what everyone is doing." Then went back to sleep. No issues from patient during Group
--- NOTE | 2017-02-03 12:11 | NUR ---
CALLED PHARMACY AT THIS TIME, MADE AWARE PT STILL NEEDS TODAYS DOSE OF CATAPRES, TECH STATES SHE WILL ASK PHARMACIST.
--- NOTE | 2017-02-03 12:51 | NUR ---
SW called to follow up on referral for pt. left vm.
--- NOTE | 2017-02-03 12:52 | NUR ---
Nurse reagan called DOn at [facility] to check on status of referral. pt. cannot be admitted to [facility] due to staff member who is a relative there to pt. and there would be a conflict of interest. Sw will send out more referrals.
--- NOTE | 2017-02-03 12:53 | NUR ---
Finishing Ornaments for Tree & conversation Patient was in attendence for group but did not participate. Patient was asleep in his chair. Attempted to wake patient up but patient would not fully awaken
--- NOTE | 2017-02-03 14:09 | NUR ---
SOO met with pt. pt asked progress of finding a new place for him to live. pt. adimant about going to facility that allows smoking. [facility] care left vm. SW will send out more referrals.
--- NOTE | 2017-02-03 15:16 | NUR ---
MOOD IS STABLE THIS SHIFT. NAPS INTERMITTENTLY T/O THE DAY. LIMITED PARTICIPATION IN GROUP THERAPY WITHOUT MUCH ENCOURAGEMENT. MEDICATION COMPLIANT WITHOUT DIFFICULTY. CALM AND COOPERATIVE WITH STAFF. APPETITE GOOD FOR MEALS. POOR HYGIENE AND DISHEVELED APPEARANCE OBSERVED. DENIES ANY SENSORY DISTURBANCES AND NONE ARE NOTED. DENIES ANY SI/HI, PLAN, OR INTENT. STATES HE IS FEELING "BETTER" AND JUST WANTS TO GO TO A DIFFERENT FACILITY WHEN DISCHARGED. RESPIRATIONS EASY AND EVEN. K[place]ILL [place]ILL MADE AWARE THIS AM OF NOTURNAL PULSE OX STUDY PREVIOUSLY COMPLETED WHILE HERE WITH NO NEW ORDERS FOR SLEEP; NEW ORDERS HAVE NOW BEEN ENTERED AND PATIENT MADE AWARE OF ORDERS.
--- NOTE | 2017-02-03 15:53 | NUR ---
LEO sent referral to [facility] to see if they could accept pt. since [facility] the sister company cannot.
--- NOTE | 2017-02-03 15:57 | NUR ---
Occupational Therapy evaluation completed on 3 with full eval to follow. Precautions include fall risk, obese +2 max xfers, 3N, high complexity level 28908. Recommend no further OT at this time as patient functions as prior to admission at w/c level and [facility] upon d/c. Thank you for this referral. Tri Dotson OTR/l
[2017-02-03 20:00] VITALS: BP 121/75; BP 131/71
--- NOTE | 2017-02-03 20:45 | NUR ---
INTERACTIVE WITH STAFF. DENIES ANY PROBLEMS TODAY. STATES HE HAS HAD A GOOD DAY. DENIES ANY OUTBURSTS AND DISCUSSES HOW HE IS READY TO FIND A NEW DETENTION. AGREES THERAPY AND MEDICATIONS DOING WELL FOR HIM. AGREED TO SEEK STAFF OUT IF ANY ISSUES ARISE.
--- NOTE | 2017-02-04 01:01 | NUR ---
CONTINUE MONITORING OXYGEN SATURATION PER ORDERS
--- NOTE | 2017-02-04 04:26 | NUR ---
24 HR chart check completed.
[2017-02-04 07:49] VITALS: BP 147/69
--- NOTE | 2017-02-04 09:13 | NUR ---
02/03/17 Afternoon Wrap Presents Patient did attend group as well as participated. This patient and another worked together,without any issues,to wrap a present. This patient has limited mobility with his hand and the other patient helped him when needed. Patient showed no aggression during group
--- NOTE | 2017-02-04 10:11 | NUR ---
THIS NURSE ASKED TO EVALUATE PATIENT'S LEFT FOOT WITH BEBETO SARABIA. FUNGAL RASH NOTED BETWEEN TOES ON LEFT FOOT AND TOP OF LEFT FOOT. RECOMMENDED LOTRISONE CREAM TO AREA BID.
--- NOTE | 2017-02-04 10:40 | NUR ---
LEO called and inquired once sweta aboput the referral sent to the [facility] care. The heel seat trimmer states that [facility] is once sweta out and the DON is reviewing the referral at this time and will SW today on whether or not they can accept pt.
--- NOTE | 2017-02-04 11:14 | NUR ---
PATIENT IS ALERT AND ORIENTED THIS AM AND APPROPRIATE IN CONVERSATIONS. POSITIVE PEER INTERACTIONS NOTED. ATTENDED AM GROUP. MEDICATION COMPLIANT WITHOUT DIFFICULTY. TOOK A SHOWER THIS MORNING. APPETITE GOOD. VERBALIZES GOOD SLEEP. SEE [facility] FLOWSHEET FOR SPECIFIC MONITORING.
--- NOTE | 2017-02-04 11:17 | NUR ---
LEO sent referral to Demi and Irene at the [facility].
--- NOTE | 2017-02-04 11:24 | NUR ---
SW rec'd called from [facility], they only have male beds avaialable on their Dementia unit, pt. not aprropriate for that unit.
--- NOTE | 2017-02-04 12:25 | NUR ---
Physical therapy evaluation completed. Pt sitting in wheelchair makin his way out of social room by self propelling with his feet. Pt ID by name and her properly ID his ; oriented to time including day/month/year. Pt states he was ambulating with his walker in the nursing home care facility but spent most of his time in the wheelchair. Pt reports pain of the left shoulder and left hip primarily with activity. Pt steadily walked with front wheeled walker, SBA/CGA x 20ft with slow gait. Pt requires reminders for locking wc brakes. Pt has left ankle DF weakness but clearance of toe/foot during ambulation this day. SBA sit to / from stand from wheelchair. Pt was cooperative and pleasant throughout this evaluation. Pt agreeable to continue PT for gait, balance, strenghening and improving functional mobility. Pt comfortable in his wc upon this clinicians departure. PT Evaluation: moderate complexity d/t time spent with pt and chart review. Thank you for this referral, Kirstin Cunha, PT
--- NOTE | 2017-02-04 13:18 | NUR ---
Goals,Exercise & Trivia Patient did attend group after he completed his shower. Patient also participated. Patient trys to "take over" group. Patient will try to talk over you,interupt,& try to take group off of subject. It has been explained to patient this behavior needs to stop or he will not be allowed in group. Patient is very apologetic and states wont happen again. There were no other issues with patient during group
--- NOTE | 2017-02-04 14:03 | NUR ---
LEO sent referral to kasie at the [facility], pt. must agree to sign himself in and can smoke there. LEO and will need to address with pt.
--- NOTE | 2017-02-04 14:04 | NUR ---
SW asked Unit Coordinatpor to send referral to [facility], they may have a male bed open and pt can smoke there.
[2017-02-04 20:19] VITALS: BP 148/80
--- NOTE | 2017-02-04 22:00 | NUR ---
HS BEDSIDE GLUCOSE 106
--- NOTE | 2017-02-05 06:08 | NUR ---
24 HR chart check completed.
--- NOTE | 2017-02-05 06:21 | NUR ---
PT HAS BEEN OBSERVED ON Q 15 MIN & HAS SLEPT QUIETLY THROUGHOUT THE SHIFT PAST 2200.
--- NOTE | 2017-02-05 07:08 | NUR ---
AM BEDSIDE GLUCOSE 108
[2017-02-05 07:23] LABS: BASO % 0.1 % (0.0-1.0); EOS # 0.3 10*3/uL (0.0-0.4); EOS % 4.1 % (1.0-4.0); HEMATOCRIT 36.6 % (42.0-52.0); HEMOGLOBIN 12.5 g/dl (14.0-18.0); LYMPH # 1.6 10*3/uL (1.3-4.4); MEAN CELL VOLUME 94.3 fl (80.0-94.0); MEAN CORPUSCULAR HGB 32.2 pg (27.0-31.0); MEAN CORPUSCULAR HGB CONC 34.2 g/dl (33.0-37.0); MEAN PLATELET VOLUME 9.5 fl (9.6-12.3); MONO # 1.3 10*3/uL (0.1-1.0); MONO % 16.5 % (3.0-9.0); NEUT # 4.7 10*3/uL (2.3-7.9); NEUT % 58.2 % (47.0-73.0); PLATELET COUNT AUTOMATED 215 10*3/uL (130-400); RED BLOOD COUNT 3.88 10*6/uL (4.50-5.90); RED CELL DISTRI WIDTH 13.1 % (0-14.5)
[2017-02-05 07:47] LABS: CHLORIDE 86 mmol/L (98-107); POTASSIUM 4.3 mmol/L (3.5-5.1); SODIUM 126 mmol/L (136-145)
[2017-02-05 07:51] VITALS: BP 150/66
[2017-02-05 07:57] LABS: ALKALINE PHOSPHATASE 46 U/L (45-117); BUN 24 mg/dl (7-24); CREATININE 0.95 mg/dL (0.70-1.30); SGOT/AST 9 IU/L (3-35); SGPT/ALT 16 U/L (12-78); TOTAL PROTEIN 7.4 gm/dL (6.4-8.2)
--- NOTE | 2017-02-05 08:46 | NUR ---
N.P was notified of need for lab review @ this time. Na level @ 126.
[2017-02-05] MEDS ORDERED: DIVALPROEX SOD500 M1 PO (09:53)
[2017-02-05] MEDS ORDERED: DULOXETINE HCL60 MG PO (09:53)
[2017-02-05] MEDS ORDERED: DULOXETINE HCL30 MG PO (09:53)
[2017-02-05] MEDS ORDERED: QUETIAPINE FUM100 M3 PO (09:53)
[2017-02-05] MEDS ORDERED: INVEGA SUSTENN156 MG IM (09:53)
--- NOTE | 2017-02-05 11:31 | NUR ---
PHYSICAL THERAPY Patient was sitting in w/c upon therapist arrival for am therapy visit and seen 1:1 for gait training. Patient transfers sit to stand CGA and ambulated 25' x 2 with use of wh walker, CGA, demonstrating both decreased stride / heel strike and w/c follow secondary to increased fatigue. Patient remained in w/c with body alarm activated for safety in the activity room under Staff Supervision. Will continue per POC as tolerated to improve functional mobility with total treatment time 12 minutes. Pascual Camacho, INSPECTOR OF DREDGING
--- NOTE | 2017-02-05 11:42 | NUR ---
02/04/17 Afternoon Puzzles Patient did attend group as well as participated. Patient was redirected several times as well as asked not to interupt or to talk over other people. Patient apologetic. There were no other issues while in attendence
--- NOTE | 2017-02-05 11:47 | NUR ---
Goals,Exercise & Games Patient did not attend group this morning. Patient was in a meeting with a represenative from [facility]
[2017-02-05] MEDS ORDERED: KEFLEX 500 MG E2 CAP PO (11:48)
[2017-02-05 13:54] LABS: BILIRUBIN NEGATIVE (NEGATIVE); BLOOD NEGATIVE (NEGATIVE); CLARITY CLEAR (CLEAR); COLOR YELLOW (YELLOW); GLUCOSE NEGATIVE (NEGATIVE); KETONE NEGATIVE (NEGATIVE); LEUKO ESTERASE TRACE (NEGATIVE); NITRITE NEGATIVE (NEGATIVE); SPECIFIC GRAVITY 1.015 (1.005-1.030)
[2017-02-05 14:08] LABS: BACTERIA TRACE; HYALINE CAST 0-2
--- NOTE | 2017-02-05 18:31 | NUR ---
Orders received to obtain urine for testing. Specimen obtained and sent to lab. Orders also received for CBC and CMP. Refer to physician orders of today David is compliant with medications. He has been appropriate in his conversation with staff thus far. States that he is looking forward to his discharge today and also states that he is "glad to have found a new place." Dr. Huerta in to see him today with orders received. No aggression has been noted. Refer to [facility] flowsheet for specific monitoring. He was noted to become irritable in late evening when he found that he was not being discharged due to PASSR not being completed. Medicated with ativan 1 mg po @ this time for anxiousness and also medicated with tylenol two tabs po @ this time for c/o headache. Refer to process intervention screen for glucometer readings throughout this day.
[2017-02-05 20:24] VITALS: BP 148/78
[2017-02-05 20:25] VITALS: BP 114/62
--- NOTE | 2017-02-05 22:00 | NUR ---
PT IS LESS IRRITABLE & ANXIOUS THIS EVENING. COMPLIANT WITH HS MEDICATIONS & SNACK. STATED THAT HE HOPES TO BE DISCHARGED TOMORROW & HOPES ALL GOES WELL.
--- NOTE | 2017-02-05 22:05 | NUR ---
HS BEDSIDE GLUCOSE 186
--- NOTE | 2017-02-06 01:29 | NUR ---
24 HR chart check completed.
--- NOTE | 2017-02-06 05:46 | NUR ---
PT HAS BEEN OBSERVED ON Q 15 MIN CHECKS & HAS SLEPT QUIETLY THROUGOUT THE SHIFT PAST 2200.
[2017-02-06 06:08] LABS: BASO % 0.3 % (0.0-1.0); EOS # 0.3 10*3/uL (0.0-0.4); EOS % 3.6 % (1.0-4.0); HEMATOCRIT 35.9 % (42.0-52.0); HEMOGLOBIN 12.1 g/dl (14.0-18.0); LYMPH % 24.9 % (27.0-41.0); MEAN CELL VOLUME 96.2 fl (80.0-94.0); MEAN CORPUSCULAR HGB 32.4 pg (27.0-31.0); MEAN CORPUSCULAR HGB CONC 33.7 g/dl (33.0-37.0); MEAN PLATELET VOLUME 9.7 fl (9.6-12.3); MONO # 1.3 10*3/uL (0.1-1.0); MONO % 16.5 % (3.0-9.0); NEUT # 4.3 10*3/uL (2.3-7.9); NEUT % 53.4 % (47.0-73.0); PLATELET COUNT AUTOMATED 208 10*3/uL (130-400); RED BLOOD COUNT 3.73 10*6/uL (4.50-5.90); RED CELL DISTRI WIDTH 13.2 % (0-14.5)
[2017-02-06 06:09] LABS: ALBUMIN 2.8 gm/dl (3.1-4.5); BUN 28 mg/dl (7-24); CHLORIDE 88 mmol/L (98-107); CREATININE 1.05 mg/dL (0.70-1.30); POTASSIUM 4.5 mmol/L (3.5-5.1); SGOT/AST 11 IU/L (3-35); SGPT/ALT 14 U/L (12-78); SODIUM 128 mmol/L (136-145)
[2017-02-06 06:11] LABS: ALKALINE PHOSPHATASE 44 U/L (45-117)
--- NOTE | 2017-02-06 06:57 | NUR ---
AM BEDSIDE GLUCOSE 107
[2017-02-06 08:00] VITALS: BP 136/74
--- NOTE | 2017-02-06 09:08 | NUR ---
02/05/17 Afternoon [place] movies Patient was in attendence but quiet and withdrawn. On one of several checks i found patient sleeping. Unable to waken patient.
--- NOTE | 2017-02-06 11:39 | NUR ---
PHYSICAL THERAPY Patient presented with increased Lethargic behaviour and after speaking with staff was told patient did not sleep well last night. Patient also was observed by staff with decreased SpO2 values at 88%. Patient not appropriate for treatment at this time. Will continue per POC as able. Pascual Camacho, CIRCLE EDGER
--- NOTE | 2017-02-06 16:27 | NUR ---
Still awaiting the [facility].
[2017-02-06 20:00] VITALS: BP 124/82
--- NOTE | 2017-02-06 21:30 | NUR ---
PT OBSERVED STANDING FROM CHAIR AND ATTEMPTING TO AMBULATE INDEPENDENTLY. PT NOTED TO BE INCONTINENT OF URINE. PT STATED "YEAH I PISSED MYSELF, I WAS WATCHING TV AND I WAS BUSY, IT JUST COMES OUT" ASSISTED BACK INTO CHAIR AND TAKEN TO SHOWER ROOM. PT MAKING STATEMENTS " ARE YOU MY , ARE YOU MY FIANCE, ARE WE SEEING EACH OTHER? THEN WHY DO YOU CARE... I DONT GIVE A FUCK, WHY SHOULD YOU". PT EXPLAINED THAT IS WHAT WE WERE HERE FOR. PT MAKING JOKES IN REGARDS TO ROOMMATE BEING MUTE STATING"HE'S MUTE AND HE IS STUPID... I WANT A NEW ROOMATE, HE'S GOING TO TRY AND CORNHOLE ME" PT REMINDED THAT LANGUAGE IS NOT APPROPRIATE, AND GIVEN TIME TO VERBALIZE FRUSTRATIONS IN REAGRDING ROOMATE. MED EDUCATION PROVIDED PT VERBALIZING CONCERN REGARDING ROZERUM. PT EDUCATED THAT DR. RILEY DID NOT ORDER THAT MEDICATION AND THAT IF HE DOES NOT SLEEP WITH CURRENT DOSE OF SEROQUIL THIS EVENING MED CHANGES COULD BE DISCUSSED WITH IN THE AM. 1-1 PROVIDED
[2017-02-07 08:13] VITALS: BP 134/67
--- NOTE | 2017-02-07 09:05 | NUR ---
LEO called [facility] to check on pt. pasrr, pasrr not in system yet, SW reached at to Jen from [employer] [facility] who states it should have been faxed to a different number. [phone], this is a diffferent number from what LEO has as she has faxed before. LEO re-faxed again to both numbers the pt. pasrr. Jen will be working on approval today.
--- NOTE | 2017-02-07 09:39 | NUR ---
PHYSICAL THERAPY Mr Roland seen this AM 1:1 for his therapy session. Wheeled Pt out into the desir to gait using the desir hand rail in his right hand. Sit/stand X 3, with 22', followed by 18', then another 18' gait with MIN RN INTERVENTIONAL X 1, using the hand rail and was pleased with his gait. Wheeled Pt back into the day room. FIONA HUA OIL TESTER.
[2017-02-07 10:24] LABS: BUN 29 mg/dl (7-24); CHLORIDE 89 mmol/L (98-107); CREATININE 1.23 mg/dL (0.70-1.30); POTASSIUM 4.3 mmol/L (3.5-5.1); SODIUM 129 mmol/L (136-145)
--- NOTE | 2017-02-07 11:14 | NUR ---
02/06/17 Morning Group Goals,Exercise & Riddles/Choices Patient did attend group as well as participated. Patient became verbally inappropriate at one point and had to be reminded that was not acceptable. Patient did not want to listen and tried talking over myself and a milieu. Patient was informed if he continued he would be removed from group. Patient stopped but told another patient "We'll talk later." After that incident there were no other issues with patient
--- NOTE | 2017-02-07 12:00 | NUR ---
Due to pt. pasrr not approved, pt. will return to [facility] and then be transferred to [facility] next week once pasrr is approved. Frannie hospital liaison at [facility] notified of pt's return to their facility today via [facility], EMS at 3pm. pt was notified by Nurse Rodarte that he will be returning to [facility] until next week and then transferred to [facility] [place] and pt. seemed to accept the d/c news ok.
--- NOTE | 2017-02-07 13:00 | NUR ---
PATIENT ALERT AND ORIENTED. RESPIRATIONS NONLABORED. NO DISTRESS NOTED. PATIENT MOOD STABLE AND WITH ANGRY AND IRRITABLE OUTBURST AT TIMES WITH NURSING STAFF AND OTHER PATIENTS. PATIENT ALSO NAME CALLING AND NURSING STAFF TALKED TO PATIENT FOR REDIRECTION. REDIRECTION EFFECTIVE AT THIS TIME. PATIENT GOAL DIRECTED AND ORGANIZED. NO HALLUCINATIONS OR DELUSIONS, NO HOMICIDAL OR SUICIDAL IDEATIONS. PATIENT AFFECT FLAT. PATIENT DEMANDING, DISRUPTIVE AT TIMES, INTERACTIVE, AND PARTICIPATING. CONTINENT OF BOWEL AND BLADDER. APPETITE GOOD. DRESSING CHANGED TO LEFT FOOT. PATIENT AT TIMES SINGING LOUDLY IN HALLWAY AND ROOM. Q 15 MINUTE SAFETY CHECKS. SEE [facility] FLOW SHEET FOR SPECIFIC MONITORING
--- NOTE | 2017-02-07 13:36 | NUR ---
Jovani Macias [facility] is on his way to deliver pt's wheelchair to [facility].
--- NOTE | 2017-02-07 13:59 | NUR ---
[facility] CALLED WITH ATTEMPT TO GIVE REPORT. SPOKE WITH BRITTNEE ARAMBULA AND WILL RELAY MESSAGE TO NURSING TO CALL BACK TO RECEIVE REPORT ON PATIENT
--- NOTE | 2017-02-07 14:21 | NUR ---
SPOKE WITH ARIELLE BARKER FROM [facility]. REPORT GIVEN ON PATIENT AND AWARE THAT PATIENT IS COMING BACK TO [facility] TODAY
--- NOTE | 2017-02-07 15:02 | NUR ---
PATIENT DISCHARGED TO [facility] VIA [facility]. TWO ATTENDANTS PRESENT. PAPER WORK AND BELONGINGS SENT WITH AMBULANCE AND PATIENT. PATIENT STABLE AT DISCHARGE
--- NOTE | 2017-02-07 15:28 | NUR ---
Goals,Exercise and Jamila Reminiscing Patient was in attendence for group as well as participated. Patient tends to try and dominate the time in group. Patient wants to continually talk about himself and his life not letting others speak. This AC tried to interject this morning but patient continues to talk over and louder. Patient was reminded that thier are other patients that would like to reminisce also. There were no other issue while patient was in group
--- NOTE | 2017-02-11 08:17 | NUR ---
PHYSICAL THERAPY CO-SIGN I approve of the Phyical Therapy notes written above. JANEEN GAITAN PT
== END 2017-02-07 14:50 | disposition other institution (70) | DRG 885 ==
LOC: 3N 12:57
PROVIDERS: Registered Nurse; ADMIT Psychiatry & Neurology Psychiatry
DX: F31.60 Bipolar disorder, current episode mixed, unspecified (principal); E87.1 Hypo-osmolality and hyponatremia; L03.115 Cellulitis of right lower limb; L03.116 Cellulitis of left lower limb; I69.359 Hemiplegia and hemiparesis following cerebral infarction affecting unspecified side; F23 Brief psychotic disorder; F17.210 Nicotine dependence, cigarettes, uncomplicated; B35.1 Tinea unguium; E66.9 Obesity, unspecified; I10 Essential (primary) hypertension; I87.2 Venous insufficiency (chronic) (peripheral); R73.9 Hyperglycemia, unspecified; M19.90 Unspecified osteoarthritis, unspecified site; N40.0 Benign prostatic hyperplasia without lower urinary tract symptoms; K21.9 Gastro-esophageal reflux disease without esophagitis; Z91.041 Radiographic dye allergy status; Z79.899 Other long term (current) drug therapy; Z68.37 Body mass index [BMI] 37.0-37.9, adult